=== PATIENT | female | born 1940 | race Caucasian/White ===

== ENCOUNTER → 2016-11-03 | Outpatient (CLI) | payer MEDICARE, BC ==
--- NOTE | 2016-11-03 23:41 | HKNOTE ---
DATE OF SERVICE: 11/03/2016 The patient comes for preoperative evaluation. She is scheduled to have a left total knee replaceme nt on 11/04/2016. She has been cleared for surgery by Dr. Jc Cuevas. She has not given any bl ood for transfusion. She understands the risks associated with using hospital blood. She is agreea ble to using hospital blood if needed. Numerous questions were asked and answered. She read my lowe klet on knee arthritis and knee replacement surgery. She comes in with her daughter. Dictated By: RAFA VERGARA/SCOTT Conf#: [id number] DID#: [id number]
== END | disposition home or self-care (01) ==
LOC: HKI 13:11
DX: Z01.818 Encounter for other preprocedural examination (principal)
CPT/HCPCS: G0463

== ENCOUNTER 2016-11-04 05:25 | Inpatient (IN) | payer MEDICARE, BC ==
[2016-11-04] VITALS (29 sets, daily range): BP systolic 109–165; BP diastolic 54–83; PULSE 76–106; RESP 13–27; Ht 149.9 cm; Wt 61.6 kg
[~2016-11-04] VITALS: Ht 149.9 cm; Wt 61.6 kg
[2016-11-04] MEDS ORDERED: LACTATED RINGER'S 1,000 ML IV* SCH (06:00)
[2016-11-04] MEDS ORDERED: TRANEXAMIC ACID 1,230 MG in SOD CHLORIDE 0.9% 100 ML IVPB ONE (06:00)
[2016-11-04] MEDS ORDERED: DEXAMETHASONE 4 MG/ML 1 ML INJ IV ONE (06:00)
[2016-11-04] MEDS ORDERED: CELECOXIB 200 MG CAP PO ONE (06:00)
[2016-11-04] MEDS ORDERED: LANSOPRAZOLE 30 MG CAP PO ONE (06:00)
[2016-11-04] MEDS ORDERED: VANCOMYCIN 1 GM (PMX) 250 ML IVPB ONE (06:00)
[2016-11-04] MEDS ORDERED: ONDANSETRON 4 MG INJ IV ONE (06:00)
[2016-11-04] MEDS ORDERED: oxyCODONE (CR) 10 MG TAB [oxyCONTIN] PO ONE (06:00)
[2016-11-04] MEDS ORDERED: ACETAMINOPHEN 1000MG/100ML IV 100 ML IVPB ONE (06:00)
[2016-11-04] MEDS ORDERED: SOD CHLORIDE 0.9% IRR SCH ×2 (06:30)
[2016-11-04] MEDS ORDERED: TRANEXAMIC ACID IRR SCH ×2 (06:30)
[2016-11-04] MEDS ORDERED: MIDAZOLAM 1 MG/ML 2 ML INJ ONE (06:50)
[2016-11-04] MEDS ORDERED: POLYMYXIN B 500000 UNIT INJ ONE (06:56)
[2016-11-04] MEDS ORDERED: BUPIVACAINE 0.25%/EPI (SDV) 30 ML INJ ONE (06:56)
[2016-11-04] MEDS ORDERED: METHYLENE BLUE 10 MG/ML VIAL ONE (06:56)
[2016-11-04] MEDS ORDERED: ROPIVACAINE 0.2% 100ML BAG ONE (06:56)
[2016-11-04] MEDS ORDERED: VANCOMYCIN 1 GM INJ ONE (06:57)
[2016-11-04] MEDS ORDERED: TOBRAMYCIN 1.2 GM POWDER ONE (06:57)
[2016-11-04] MEDS: KNEE PAIN COCKTAIL VANCO INJ SCH ×12 (07:00→08:02)
[2016-11-04] MEDS ORDERED: ROPIVACAINE 0.5 % 30 ML VIAL ONE (07:20)
[2016-11-04] MEDS ORDERED: PROPOFOL 100 ML ONE (07:20)
[2016-11-04] MEDS ORDERED: morphine SULFATE/PF (10 MG/10 ML) INJ ONE (07:24)
[2016-11-04] MEDS ORDERED: PHENYLephrine (100 MCG/ML) 5ML SYG ONE ×6 (07:28→09:34)
[2016-11-04] MEDS ORDERED: HYDROmorphONE 1 MG/ML SYG IV PRN ×2 (08:00)
[2016-11-04] MEDS ORDERED: morphine 2 MG INJ IV PRN (08:00)
[2016-11-04] MEDS ORDERED: LABETALOL HCL 20MG INJ IV PRN (08:00)
[2016-11-04] MEDS ORDERED: ONDANSETRON 4 MG INJ IV PRN (08:00)
[2016-11-04] MEDS ORDERED: ALBUMIN HUMAN 5% 250 ML IV PRN (08:00)
[2016-11-04] MEDS ORDERED: NALOXONE (0.4 MG/ML) INJ IV PRN ×2 (08:00→11:30)
[2016-11-04] MEDS ORDERED: morphine 4 MG/ML VIAL IV PRN (08:00)
[2016-11-04] MEDS ORDERED: MEPERIDINE 25 MG INJ IV PRN (08:00)
[2016-11-04] MEDS ORDERED: hydrALAzine 20 MG INJ IV PRN (08:00)
[2016-11-04] MEDS ORDERED: DIPHENHYDRAMINE 50 MG INJ IV PRN ×2 (08:00)
[2016-11-04] MEDS ORDERED: EPHEDrine SULFATE 50 MG/5 ML SYG IV PRN (08:00)
[2016-11-04] MEDS ORDERED: BACITRACIN 50000 UNITS INJ IRR ONE (08:02)
[2016-11-04] MEDS ORDERED: ALBUMIN HUMAN 5% 500 ML ONE (08:43)
--- NOTE | 2016-11-04 08:52 | RADRPT ---
PROCEDURE: Left knee x-ray. CLINICAL INDICATION: Intraoperative localization for knee replacement procedure. TECHNIQUE: 3 images obtained intraoperatively during a knee prosthesis placement procedure. COMPARISON: None available FINDINGS: 3 images obtained intraoperatively for localization during a knee prosthesis placement procedure. T he procedure was performed by Dr. Brooke; images were obtained for localization intraoperatively . Surgical hardware is seen in place. 10.3 seconds of fluoroscopy was used during the procedure IMPRESSION: 3 images and 10.3 seconds of fluoroscopy used during a left total knee replacement. RPTAT:HGDB .Cr Shabazz MD, MD Date Time Electronically viewed and signed by .Cr Shabazz MD, on 11/04/2016 08:52 .B/
[2016-11-04] MEDS ORDERED: ONDANSETRON 4 MG INJ ONE (08:56)
[2016-11-04] MEDS ORDERED: DEXAMETHASONE 4 MG/ML 1 ML INJ ONE (08:56)
[2016-11-04] MEDS ORDERED: FAMOTIDINE 20 MG INJ ONE (08:56)
[2016-11-04] MEDS ORDERED: PHENYLephrine 10 MG INJ ONE (09:55)
[2016-11-04] MEDS ORDERED: TRIAMCINOLONE ACET 40 MG/ML INJ ONE (10:21)
--- NOTE | 2016-11-04 10:42 | RADRPT ---
PROCEDURE: XR left knee. CLINICAL INDICATION: Knee pain. TECHNIQUE: AP and lateral views are available for review. COMPARISON: No comparison available FINDINGS: There is a postoperative total knee replacement. There is a possible fracture of the lateral tibial cortex adjacent to the distal tibial stem with the leakage of cement in the soft tissues. The osseou s structures are otherwise normal in mineralization, architecture and alignment.No osseous lesions a re identified. There are postoperative soft tissue changes . IMPRESSION: Postoperative left total knee replacement Possible fracture of the lateral tibial cortex adjacent to the distal tibial stent with leakage of c ement into the soft tissues. Postoperative soft tissue changes RPTAT: HGDB .Cr Shabazz MD, MD Date Time Electronically viewed and signed by .Cr Shabazz MD, on 11/04/2016 10:42 .B/
[2016-11-04] MEDS ORDERED: TRIAMCINOLONE ACET 40 MG/ML INJ INJ ONE (10:54)
[2016-11-04] MEDS ORDERED: DEXTROSE 5%-LR 1,000 ML IV SCH (11:13)
[2016-11-04] MEDS ORDERED: DIPHENHYDRAMINE 50 MG INJ IM PRN (11:30)
[2016-11-04] MEDS ORDERED: ASPIRIN (EC) 325 MG TAB PO ONE (11:30)
[2016-11-04] MEDS ORDERED: DOCUSATE SODIUM 100 MG CAP PO ONE (11:30)
[2016-11-04] MEDS ORDERED: BETHANECHOL 25 MG TAB PO PRN (11:30)
[2016-11-04] MEDS ORDERED: MEPERIDINE 10 MG/ML 30 ML PCA IV PRN (11:30)
[2016-11-04] MEDS ORDERED: COUMADIN NOTE XX SCH (11:30)
[2016-11-04] MEDS ORDERED: BISACODYL 10 MG SUPP PR PRN (11:30)
[2016-11-04] MEDS ORDERED: NA PHOSPHATE/BIPHOS 133 ML ENEMA PR PRN (11:30)
[2016-11-04] MEDS ORDERED: oxyCODONE 5 MG TAB PO PRN ×2 (11:30)
[2016-11-04] MEDS ORDERED: SENNA/DOCUSATE NA (8.6MG/50MG) TAB PO PRN (11:30)
[2016-11-04] MEDS ORDERED: HYDROmorphONE 0.2 MG/ML PCA IV PRN (11:30)
[2016-11-04] MEDS ORDERED: ZOLPIDEM 5 MG TAB PO PRN (11:30)
[2016-11-04] MEDS ORDERED: MAGNESIUM HYDROXIDE 30ML CUP PO PRN (11:30)
--- NOTE | 2016-11-04 11:30 | RADRPT ---
PROCEDURE: CR Left Knee CLINICAL INDICATION: Postop TKA TECHNIQUE: An AP and a lateral radiograph were submitted. COMPARISON: 11/04/2016 FINDINGS: Osseous Structures: The pole of the left knee replacement components are well seated. The osseous e lements otherwise appear rarefied but intact. Joint Spaces: Decreased intra-articular air is identified and surgical drains have been placed. Soft Tissues: Superficial piotr been placed ventrally. IMPRESSION: 1. Well seated total left knee replacement components, again noted. 2. Osteoporosis 3. Intra-articular air with drains in place. 4. Anterior superficial piotr are now evident. Physician Lemuel Date Time Electronically viewed and signed by Physician Lemuel on 11/04/2016 11:29 /
[2016-11-04] MEDS: CEFAZOLIN 1 GM/50 ML (PMX) 50 ML IVPB SCH ×2 (12:14→20:59)
[2016-11-04] MEDS: ONDANSETRON 4 MG INJ IV SCH ×3 (13:07→23:30)
--- NOTE | 2016-11-04 14:43 | OPR ---
DATE OF OPERATION: 11/04/2016 DATE OF OPERATION: 11/04/2016 SURGEON: Herbert. Edwardo MD STEWARD/STEWARDESS SECOND CLASS: ____ ANESTHESIOLOGIST: Dr. Mullins PREOPERATIVE DIAGNOSIS: Exceedingly severe degenerative osteoarthritis of the left knee. POSTOPERATIVE DIAGNOSIS: Exceedingly severe degenerative osteoarthritis of the left knee. OPERATION PERFORMED: Left total knee replacement (arthroplasty of the knee, condylar plateau medial and lateral compartments with patella resurfacing, CPT 37481). FINDINGS AT SURGERY: The patient was found to have exceedingly severe degenerative osteoarthritis a ffecting the entire knee. A photograph was taken of the distal femoral condyles and the intercondyl ar notch was completely overgrown with osteophytes. There was no normal cartilage anywhere in the k nee. There were huge osteophytes along the medial and lateral mortise of the distal femur. The bon e on the tibial side was markedly soft so that it was easy to insert a Kaushik into the soft bone. My professional opinion was that the bone was too soft for a standard tibial component and a component with a stem was therefore selected. Note also that an alignment ro d was used to determine the alignment of the tibial jig and this ney was set to align on the center of the tip of the knee to the center of the ankle, with the knee in the proper ____orientation. JUSTIFICATION FOR SURGERY: The knee was found to have end-stage osteoarthritis. The patient is a v clint active 76-year-old whose lifestyle is markedly affected by the arthritic knee. An extensive cou rse of conservative care has been tried prior to embarking on the knee replacement operation. There can be no reasonable expectation that any further conservative treatment will make any improvement to this patient's pain level and lifestyle. The risks and complications of the surgery were discuss ed with the patient at the preoperative visit as well as the risks and possible complications of blo od transfusion using hospital blood. The patient is agreeable to using hospital blood if needed. DESCRIPTION OF PROCEDURE: The patient was given intravenous antibiotics 1 hour prior to surgery. A n epidural anesthetic was initiated in the ICU holding area. The patient was taken to the operating room and given a light general anesthetic. The leg, foot, and ankle were prepared and draped in th e usual sterile fashion. The center of the ankle was marked at the midpoint between the 2 malleoli with a sterile marking pen. A tourniquet around the thigh was inflated to 225 mmHg after the leg sifuentes d been exsanguinated using an Esmarch bandage. The tourniquet was inflated at the initiation of pro cedure for a short period and was then again reinflated at the time of cementing the components part s. The total tourniquet time was 46 minutes. A longitudinal incision was made over the anterior aspect of the knee. The incision extended from t he tibial tubercle to a point just above the patella. The medial capsule was exposed by sharp and bailey ochoat dissection, and was incised 1/4 inch medial to the patella. A marking stitch was set on each s van of the incision at the midpoint of the capsule so as to enable accurate reapproximation at the e nd of the operation. A vastus split was made in the vastus medialis extending from the superior deuce e of the patella for approximately 5 cm between the line with the muscle fibers. The ends of the mu scle split at the patella were marked with a marking stitch on each side for later accurate reapprox imation. The patella was reflected laterally and osteophytes around the rim of the patella were rem brian. Osteophytes along the lateral femoral condyle were removed so as to facilitate lateral reflec tion of the patella. Posteromedial osteophytes were removed on the lateral side as well, so as to f ree up the lateral collateral ligament. Medial femoral osteophytes and posteromedial femoral osteop hytes were also removed at this time. This allowed for the knee to be brought into a more normal al ignment. A segment of bone was cut from the articular surface of the patella using a caliper to det ermine the exact thickness to be removed. The remaining thickness of the patella was 17 mm. The kn ee was flexed, and the patella was displaced laterally without eversion. Osteophytes in the femoral notch were removed. The remnants of the medial and lateral menisci were excised and the cruciate l igaments were excised. The medial collateral ligament was elevated as an osteo-periosteal flap from the proximal tibia. The distal end of the medial collateral ligament remained attached to the tibi a throughout the operation. The tibia was retracted forward with Hohmann retractor, inserted knife finisher ior to the midpoint of the proximal tibia. An AP and lateral x-ray was obtained with the alignment ney in place. The knee was first oriented into the proper rotation by obtaining a lateral x-ray of the knee and changing the rotation alignment until the 2 femoral condyles were perfectly overlapped. An alignment ney was now set over the anterior aspect of the knee and the proximal end was set at the center of the knee. The distal end was set at the center of the ankle. Using this alignment, ma rks were made to orient the tibial jig. The tibial jig was now set in place using these above-menti oned alignment parameters. It was noted at this point that alignment from the center of the knee to the center of the ankle did not pass centrally down the tibia because there was a certain degree of bowing of the tibia. However, the mechanical alignment of the knee had to be restored. This showe d that the alignment was satisfactory after some slight adjustments were made. The posterior slope of the tibia was set at 2 degrees (necessary for a stemmed implant). The tibial cutting block was a ttached to the proximal tibia with 2 Steinmann pins. An external alignment ney was placed on the cu tting block to confirm the alignment of the cutting block. An Sj Wing feeler gauge was now place d on the superior aspect of the cutting block to further confirm the posterior slope of the tibia an d the depth of the cut to be made. An oscillating saw was used to remove an appropriate amount of b one from the proximal tibia with the healthy side being used to measure the cutting depth. The late ral femoral condyle of the distal femur was measured to determine the appropriate size for the femor al component. The anterior condyle of the femur was partially removed with a rongeur. A medium-siz ed cutting block was attached to the distal femur with 2 Steinmann pins through the pin holes in the block. The external alignment jig of this cutting block was lined up with the anterior surface of the femur and a central intercondylar hole for the intramedullary ney was drilled through the hole i n the alignment block. The block was removed. A long Waterpik nozzle was used to flush fat from th e intramedullary canal. The appropriately sized cutting block was now attached to the femur by mean s of an intramedullary ney. The linking guide was inserted into the slot in the base of the femoral cutting block with the knee set at 90 degrees of flexion and with the linking guide set flush with the proximal tibial cut in order to set the appropriate rotational alignment on the femoral cutting block. Ligament balance was checked at this point and was found to be very satisfactory. Once the rotational alignment had been determined, and the ligaments found to be balanced, the femoral cuttin g block was secured to the distal femur with 2 Steinmann pins. The anterior and posterior cuts of t he distal femur were made off the femoral cutting block. The cutting block was removed and a spacer block was used to measure the flexion gap which was found to be 15 mm. The same spacer block size without the femoral element was used with the leg in extension to determi ne the amount of distal femur to be removed in the transverse plane. A 5-degree distal cutting bloc k was now set on the femoral intramedullary ney, and the ney was inserted into the intramedullary ca nal. The appropriate amount of bone to be removed was determined. The femoral cutting block was pi nned to the anterior surface of the femur with 2 Steinmann pins. The appropriate amount of bone was resected off the distal femur to give an extension gap equal to the thickness of the flexion gap. The cut needed to be repeated after initial cut in order to produce an extension gap the same size a s the flexion gap. By using the appropriate cutting blocks, the rest of the femoral cuts were made. The femoral trial component was installed and was found to fit perfectly. The femoral trial component was removed. Lupe garcia proximal tibia was sized, and the appropriate tibial tray selected. The central fixation hole in the tibia was made using the tibial tray template and the appropriate instruments. The femoral and tibial trials and the trial tibial insert were installed, and the patella was prepared to accept th e 32 mm patellar dome component. The trial components were all removed. The tourniquet was inflate d. Soft tissues around the knee, especially the posterior capsule, were injected with a mixture of Naropin, Toradol, morphine, and clonidine. The cut surfaces of the bones were cleaned with pulsatil e Water Jet lavage and thoroughly dried. Sclerotic bone surfaces were drilled with a 1/8-inch drill . The tibial trial component was installed with methyl methacrylate cement followed by the femoral component and finally the patellar component. Cement was used on all 3 components. The cement was finger packed into the cut surfaces of the bone and pressurized with a rubber dam in order to get go od interdigitation of the cement into the bone. A lateral x-ray of the knee was obtained while the cement was hardening with the anticipated appropriate spacer trial in place. Once the cement was sifuentes rd, all extraneous cement was removed. The cut edges of the medial capsule were held together at th e midpoint with a towel clip, and the knee was put through a full range of motion. The patella was found to track satisfactorily. A lateral release was not required. At this point, the patella was found to track very well in the patellar groove of the femoral component. The knee was frequently irrigated with normal saline containing antibiotics with pulsatile lavage th roughout the entire operation as a prophylactic measure against infection. Once the cement was hard , the tourniquet was released. While the cement was hardening, a true lateral x-ray of the knee was now obtained with the 17.[address]. A true AP x-ray of the knee was obtained at the katie e time. This showed that the tibial intramedullary component was not central in the proximal tibia because of the above-mentioned bowing of the tibia. It also showed that cement had extruded from a p erforation in the tibial bone. Thought was given to removing this cement, but it would have require d an additional incision, which I felt was not justified. Bleeding points were cauterized. The to nicko tourniquet time was 46 minutes. The patient's vital signs remained stable throughout the operat ion. The permanent rotating bearing was installed. Superficial and deep Hemovac drains were set in place . The wound was closed using interrupted Vicryl on the capsule with FiberWire used at strategic poi nts such as the attachment of the distal ends of the vastus medialis at the split, and the tibial te ndon was also attached to the osteo-periosteal flap with FiberWire. The rest of the medial capsule was closed with interrupted Vicryl. A subcuticular stitch was inserted and piotr were used on the skin. The usual sterile dressings were applied. A Juan-Barnard compression dressing was applied a fter a sterile cooling pad had been set in place against the deep tissues by sterile cast padding. The patient's condition at the end of the procedure was satisfactory. Vital signs remained stable t hroughout the operation. The patient returned to the recovery room in stable condition. X-rays wer e obtained in the recovery room. Calf pumps were applied to both legs in the operating room. There were no problems or complications as far as we know. The sponge and instrument counts were correct . The cement appeared to be in a place where it could not cause any harm. COMPONENT INFORMATION: KNEE IMPLANT TYPE: LCS. FEMORAL COMPONENT SIZE: Medium TIBIAL COMPONENT SIZE: #3, TIBIAL EXTENSION LENGTH 30 MM (THE SHORTEST THAT IS AVAILABLE FOR THIS S YSTEM) PATELLAR COMPONENT SIZE: 32 MM DONE TIBIAL INSERT: 17.5 MM, POSTERIOR STABILIZING ROTATING BEARING. IMPLANT MANAGER LONG TERM CARE: The [employer] [facility] [place], [place]. TOTAL TOURNIQUET TIME: 46 MINUTES TOTAL BLOOD LOSS: Possibly 150 mL. Dictated By: RAFA VERGARA/SCOTT Conf#: [id number] DID#: [id number]
[2016-11-04] MEDS ORDERED: BACITRACIN 50000 UNITS INJ ONE (14:57)
[2016-11-04] MEDS ORDERED: GLUCAGON 1 MG INJ IM PRN (19:30)
[2016-11-04] MEDS ORDERED: GLUCOSE GEL 15 GRAM TUBE BUCCAL PRN (19:30)
[2016-11-04] MEDS ORDERED: DEXTROSE 50% 50 ML SYRINGE IV PRN ×2 (19:30)
[2016-11-04] MEDS ORDERED: GLUCOSE GEL 15 GRAM TUBE PO PRN ×2 (19:30)
--- NOTE | 2016-11-04 19:42 | CONS ---
DATE OF ADMISSION: 11/04/2016 DATE OF CONSULTATION: 11/04/2016 TYPE OF CONSULTATION: Medical. Thank you, Dr. Brandon, for asking me to participate in the medical management of this patient. REASON FOR CONSULTATION: To manage the patient's hypertension, hyperlipidemia, prediabetes. HISTORY OF PRESENT ILLNESS: This 76-year-old female is in the recovery room after undergoing a left total knee replacement. The patient has a history of osteoarthritis of both knees. She has failed medical therapy and decided to undergo a total knee replacement. The patient is awake and alert. She was able to go over her history with me. The patient is comfortable as far as knee pain. She i s having some nausea and did have some vomiting. PAST MEDICAL HISTORY As follows: 1. Prediabetes. 2. Hypertension. 3. Hyperlipidemia. 4. 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 5. History of hyperkalemia. 6. Vitamin D deficiency. 7. Coronary artery disease. 8. Rosacea. 9. Osteopenia. 10. Degenerative disk disease with spinal stenosis. 11. Osteoarthritis. 12. History of shingles. The patient also has: 13. Renal cysts. 14. Liver cysts. PAST SURGICAL HISTORY: Tonsillectomy, adenoidectomy, peptic ulcer disease - previously on omeprazol e, laparoscopic cholecystectomy in 2009. ALLERGIES: NO KNOWN DRUG ALLERGIES. SOCIAL HISTORY: She is twice; currently, with a boyfriend. She has an adopted daughter. Retired [employer]. She has never smoked. FAMILY HISTORY: Remarkable for mother had heart disease, is ; she also diabetes mellitus, m acular degeneration. Father , coronary artery disease, diabetes mellitus, CVA. CURRENT MEDICATIONS Include the followin. Metformin 500 mg twice a day. 2. Pravastatin 20 mg a day. 3. Zestoretic 20/12.5 once a day. She did take a dose this morning. She has been off: 1. Aspirin. 2. Omeprazole. 3. Calcium. 4. [place] 3 fish oil. PHYSICAL EXAMINATION GENERAL: At this time, reveals a well-developed female in no apparent distress. VITAL SIGNS: Pulse of 84, respirations 22, blood pressure 115/63, O2 saturation 92% on a 2 L nasal cannula. HEENT: Head normocephalic. Eyes, extraocular muscles intact. The patient's vision is poor. NOSE AND MOUTH: Normal. NECK: Supple. No neck vein distention. LUNGS: Clear to auscultation. HEART: Regular rhythm. No murmurs, gallops or rubs. ABDOMEN: Soft, nontender. EXTREMITIES: No peripheral edema. NEUROLOGIC: Grossly intact. IMPRESSION: This patient is stable postoperative a left total knee replacement. Her blood pressure is well-controlled at this time. I will manage the patient's hypertension, prediabetes and hyperch olesterolemia. PLAN: 1. Resume some routine medications. 2. Accu-Cheks with sliding scale insulin. 3. Adjust IVs because of history of prediabetes. 4. Check labs in the morning. 5. I will follow the patient along with you medically. Dictated By: CHONG PEREA MD, ND/SCOTT Conf#: [id number] DID#: [id number] CC: RAFA BRANDON MD;*End*
[2016-11-04] MEDS: SOD CHLORIDE 0.45% 1,000 ML IV SCH (20:58)
[2016-11-04] MEDS: ATORVASTATIN 20 MG TAB PO SCH (20:59)
[2016-11-04] MEDS: CELECOXIB 200 MG CAP PO SCH (20:59)
[2016-11-04] MEDS: INSULIN ASPART [NOVOLOG] 3 ML PEN SC SCH (21:00)
[2016-11-05] MEDS: ACCUCHECK XX SCH (02:00)
[2016-11-05] MEDS: CEFAZOLIN 1 GM/50 ML (PMX) 50 ML IVPB SCH (03:53)
[2016-11-05 04:51] VITALS: BP 119/86; RESP 18
[2016-11-05 05:42] LABS: ALBUMIN 3.2 g/dl (3.3-4.9)
[2016-11-05 05:45] LABS: ALBUMIN/GLOBULIN RATIO 1.45; BILIRUBIN,INDIRECT 0.4 mg/dl (0-1.1); BILIRUBIN,TOTAL 0.4 mg/dl (0.2-1.3); CREATININE 0.6 mg/dl (0.44-1.00); TOTAL PROTEIN 5.4 g/dl (6.1-8.1)
[2016-11-05 05:46] LABS: CALCIUM 8.3 mg/dl (8.4-10.2); HEMATOCRIT 25.9 % (37.0-47.0); HEMOGLOBIN 8.4 g/dl (12.0-16.0); LYMPHOCYTES % 7.9 % (15.0-51.0); MEAN CORPUSCULAR HEMOGLOBIN 25.7 pg (29.0-33.0); MEAN CORPUSCULAR HGB CONC 32.4 g/dl (32.0-37.0); MEAN CORPUSCULAR VOLUME 79.2 fl (82.0-101.0); MEAN PLATELET VOLUME 9.2 fl (7.4-10.4); MONOCYTE # 0.7 10^3/ul (0.3-0.9); MONOCYTES % 5.8 % (0.0-11.0); NEUTROPHIL # 10.7 10^3/ul (1.6-7.5); NEUTROPHILS % 86.3 % (39.0-77.0); PLATELET COUNT 188 10^3/UL (140-440); RED BLOOD COUNT 3.27 10^6/ul (4.20-5.40); RED CELL DISTRIBUTION WIDTH 15.4 % (11.5-14.5); UNCORRECTED WBC 12.4 10^3/ul (4.8-10.8); WHITE BLOOD COUNT 12.4 10^3/ul (4.8-10.8)
[2016-11-05 05:49] LABS: CONDITION 1; LH ANALYZER COMMENTS 1
[2016-11-05] MEDS ORDERED: KETOROLAC 30 MG INJ INJ PRN (06:00)
[2016-11-05] MEDS ORDERED: BUPIVACAINE 0.25%/EPI (SDV) 30 ML INJ INJ PRN (06:00)
[2016-11-05] MEDS: DEXAMETHASONE 4 MG/ML 1 ML INJ IV SCH (06:06)
[2016-11-05] MEDS: ONDANSETRON 4 MG INJ IV SCH (06:06)
[2016-11-05 06:12] VITALS: BP 114/55; PULSE 75; RESP 20
[2016-11-05 07:11] VITALS: BP 117/60; RESP 19
[2016-11-05] MEDS: INSULIN ASPART [NOVOLOG] 3 ML PEN SC SCH ×4 (07:50→21:00)
[2016-11-05 08:10] LABS: ADD UMIC YES; URINE BILIRUBIN (Dip) NEGATIVE (NEGATIVE); URINE BLOOD (Dip) 1+ (NEGATIVE); URINE COLOR LT. YELLOW (YELLOW); URINE GLUCOSE (Dip) NEGATIVE (NEGATIVE); URINE KETONES (Dip) NEGATIVE (NEGATIVE); URINE LEUKOCYTE ESTERASE (Dip) NEGATIVE (NEGATIVE); URINE NITRITE (Dip) NEGATIVE (NEGATIVE); URINE TOTAL PROTEIN (Dip) NEGATIVE (NEGATIVE); URINE UROBILINOGEN (Dip) 0.2 E.U./dL (0.1-1.0)
[2016-11-05 08:28] LABS: BACTERIA,URINE FEW
[2016-11-05] MEDS: CELECOXIB 200 MG CAP PO SCH ×4 (09:00→21:11)
[2016-11-05] MEDS: ASPIRIN (EC) 325 MG TAB PO SCH ×2 (09:46→21:12)
[2016-11-05] MEDS: FERROUS FUMARATE (SR) TAB PO SCH ×2 (09:46→21:12)
[2016-11-05] MEDS: DOCUSATE SODIUM 100 MG CAP PO SCH ×2 (09:46→21:12)
[2016-11-05] MEDS: SOD CHLORIDE 0.45% 1,000 ML IV SCH ×2 (09:47→20:00)
--- NOTE | 2016-11-05 10:28 | CONS ---
Date/Time of Note Date/Time of Note DATE: 11/05/16 TIME: 10:23 Assessment/Plan Assessment/Plan Chief Complaint/Hosp Course 1. she is 1 day post op a L TKR . she is asymptomatic . 2. Anemia , recheck H/H in am 3. elevated liver enzymes , will repeat in am 4. BP is under good control Problems: Consultation Date/Type/Reason Admit Date/Time Nov 04, 2016 at 05:25 Initial Consult Date 24 HR Interval Summary Free Text/Dictation she is now post op L TKR . she is feeling better today . Constitutional: improved Exam/Review of Systems Vital Signs Vitals Vital Signs Date Time Temp Pulse Resp B/P Pulse Ox O2 Delivery O2 Flow Rate FiO2 11/05/16 07:11 98.3 72 19 117/60 98 11/05/16 06:12 Nasal Cannula 2.0 Intake and Output 11/04/16 11/04/16 11/05/16 15:00 23:00 07:00 Intake Total 2612.3 ml 50 ml 1110 ml Output Total 750 ml 780 ml Balance 1862.3 ml 50 ml 330 ml Exam Constitutional: alert, oriented, well developed Psych: nl mood/affect, no complaints Respiratory: clear to auscultation, normal air movement Cardiovascular: nl pulses, regular rate and rhythm Gastrointestinal: nl liver, spleen, non-tender, soft Musculoskeletal: nl extremities to inspection Results Result Diagram: 11/05/16 0439 11/05/16 0439 Results 24 hrs Laboratory Tests Test 11/04/16 19:06 11/04/16 21:00 11/05/16 04:39 11/05/16 05:00 Bedside Glucose 191 149 Alanine Aminotransferase (ALT/SGPT) 104 H Albumin 3.2 L Albumin/Globulin Ratio 1.45 Alkaline Phosphatase 42 Anion Gap 10 Aspartate Amino Transf (AST/SGOT) 84 H Basophils # 0.0 Basophils % 0.0 Blood Morphology Comment Blood Urea Nitrogen 13 Calcium Level 8.3 L Carbon Dioxide Level 31 Chloride Level 102 Creatinine 0.60 Direct Bilirubin 0.00 Eosinophils # 0.0 Eosinophils % 0.0 Globulin 2.20 Glucose Level 126 Hematocrit 25.9 L Hemoglobin 8.4 L Indirect Bilirubin 0.4 Lymphocytes # 1.0 Lymphocytes % 7.9 L Mean Corpuscular Hemoglobin 25.7 L Mean Corpuscular Hemoglobin Concent 32.4 Mean Corpuscular Volume 79.2 L Mean Platelet Volume 9.2 Monocytes # 0.7 Monocytes % 5.8 Neutrophils # 10.7 H Neutrophils % 86.3 H Nucleated Red Blood Cells # 0.0 Nucleated Red Blood Cells % 0.0 Platelet Count 188 Potassium Level 4.0 Red Blood Count 3.27 L Red Cell Distribution Width 15.4 H Sodium Level 139 Total Bilirubin 0.4 Total Protein 5.4 L White Blood Count 12.4 H Urine Bacteria FEW Urine Bilirubin NEGATIVE Urine Clarity CLEAR Urine Color LT. YELLOW Urine Epithelial Cells FEW Urine Glucose NEGATIVE Urine Hemoglobin 1+ H Urine Ketones NEGATIVE Urine Leukocyte Esterase NEGATIVE Urine Microscopic RBC 5-10 Urine Microscopic WBC 0-2 Urine Nitrite NEGATIVE Urine Specific [place] >=1.030 H Urine Total Protein NEGATIVE Urine Urobilinogen 0.2 E.U./dL Urine pH 6.0 Test 11/05/16 08:13 Bedside Glucose 130 Medications Medications Current Medications Hydromorphone HCl (Dilaudid TURNER MACHINE OPERATOR) Q4PCA PRN IV SEVERE PAIN 8-10; Start 11/04/16 at 11:30; Stop 11/05/16 at 11:29 Meperidine HCl (Demerol TURNER MACHINE OPERATOR) Q4PCA PRN IV SEVERE PAIN 8-10; Start 11/04/16 at 11:30; Stop 11/05/16 at 11:29 Oxycodone HCl (Roxicodone) 20 mg Q3H PRN PO PAIN LEVEL 8-10; Start 11/04/16 at 11:30 Oxycodone HCl (Roxicodone) 10 mg Q3H PRN PO PAIN LEVEL 4-7; Start 11/04/16 at 11 :30 Zolpidem Tartrate (Ambien) 5 mg HS PRN PO INSOMNIA; Start 11/04/16 at 11:30 Miscellaneous Information (Note) NOTE XX ; Start 11/04/16 at 11:30 Aspirin (Ecotrin) 325 mg BID PO Last administered on 11/05/16 09:46; Admin Dose 325 MG; Start 11/05/16 at 09:00 Celecoxib (Celebrex) 200 mg BID PO Last administered on 11/05/16 09:46; Admin Dose 200 MG; Start 11/05/16 at 09:00 Dexamethasone (Decadron) 4 mg DAILY@07 IV Last administered on 11/05/16 06:06; Admin Dose 4 MG; Start 11/05/16 at 07:00; Stop 11/07/16 at 06:59 Pantoprazole (Protonix Tab) 40 mg DAILY@06 PO ; Start 11/06/16 at 06:00 Docusate Sodium/ Ferrous Fumarate (Marilin-Sequels) 1 tab BID PO Last administered on 11/05/16 09:46; Admin Dose 1 TAB; Start 11/05/16 at 09:00 Docusate Sodium (Colace) 200 mg BID PO Last administered on 11/05/16 09:46; Admin Dose 200 MG; Start 11/05/16 at 09:00; Stop 11/08/16 at 08:59 Simethicone (Mylicon) 80 mg TID PRN PO DISTENSION/GAS/BLOATING; Start 11/04/16 at 11:30 Senna/Docusate Sodium (Senokot-S) 2 tab BID PRN PO CONSTIPATION; Start 11/04/16 at 11:30 Magnesium Hydroxide (Milk Of Mag) 30 ml HS PRN PO CONSTIPATION; Start 11/04/16 at 11:30 Bisacodyl (Dulcolax Supp) 10 mg DAILY PRN [place] CONSTIPATION; Start 11/04/16 at 11: 30 Sodium Biphosphate/ Sodium Phosphate (Fleet Enema) 133 ml DAILY PRN [place] CONSTIPATION; Start 11/04/16 at 11:30 Diphenhydramine HCl (Benadryl) 25 mg Q4H PRN IM ITCHING OR RASH; Start 11/04/16 at 11:30 Ketorolac Tromethamine (Toradol) 30 mg DAILY@06 PRN INJ ADMINSTER BY SURGEON ONLY; Start 11/05/16 at 06:00; Stop 11/09/16 at 05:59 Bupivacaine HCl/ Epinephrine Bitart (Marcaine 0.25%/ Epi (Sdv) 30 ml) 20 ml DAILY@06 PRN INJ ADMINSTER BY SURGEON ONLY; Start 11/05/16 at 06:00; Stop at 05:59 Naloxone HCl (Narcan) 0.2 mg Q2M PRN IV DECREASED REPIRATORY RATE; Start at 11:30 Celecoxib 200 mg 200 mg BID PO Last administered on 11/04/16 20:59; Admin Dose 200 MG; Start 11/04/16 at 21:00 Sodium Chloride (1/2 NS) 1,000 ml @ 80 mls/hr [id number] IV Last administered on 11/05/16 09:47; Admin Dose 80 MLS/HR; Start 11/04/16 at 19:00 Atorvastatin Calcium (Lipitor) 20 mg HS PO Last administered on 11/04/16 20:59 ; Admin Dose 20 MG; Start 11/04/16 at 21:00 Diagnostic Test (Pha) (Accucheck) 1 ea 02 XX ; Start 11/05/16 at 02:00 Miscellaneous Information 1 ea NOTE XX ; Start 11/04/16 at 19:30 Glucose (Glutose) 15 gm Q15M PRN PO DECREASED GLUCOSE; Start 11/04/16 at 19:30 Glucose (Glutose) 22.5 gm Q15M PRN PO DECREASED GLUCOSE; Start 11/04/16 at 19:30 Dextrose (D50w Syringe) 25 ml Q15M PRN IV DECREASED GLUCOSE; Start 11/04/16 at 19:30 Dextrose (D50w Syringe) 50 ml Q15M PRN IV DECREASED GLUCOSE; Start 11/04/16 at 19:30 Glucagon (Glucagen) 1 mg Q15M PRN IM DECREASED GLUCOSE; Start 11/04/16 at 19:30 Glucose (Glutose) 15 gm Q15M PRN BUCCAL DECREASED GLUCOSE; Start 11/04/16 at 19: 30 CHONG PEREA MD Nov 05, 2016 10:27
[2016-11-05] MEDS: metFORMIN 500 MG TAB PO SCH (13:08)
[2016-11-05 19:25] VITALS: BP 123/59; RESP 18
[2016-11-05] MEDS: ATORVASTATIN 20 MG TAB PO SCH (21:12)
[2016-11-06] MEDS: ACCUCHECK XX SCH (02:00)
[2016-11-06 06:01] LABS: POTASSIUM 3.7 mmol/L (3.5-5.1)
[2016-11-06 06:10] LABS: BASOPHILS % 0.3 % (0.0-2.0); EOSINOPHILS % 0.5 % (0.0-7.0); HEMATOCRIT 22.8 % (37.0-47.0); HEMOGLOBIN 7.7 g/dl (12.0-16.0); LYMPHOCYTES # 1.7 10^3/ul (0.8-2.9); LYMPHOCYTES % 18.2 % (15.0-51.0); MEAN CORPUSCULAR HEMOGLOBIN 26.3 pg (29.0-33.0); MEAN CORPUSCULAR HGB CONC 33.5 g/dl (32.0-37.0); MEAN CORPUSCULAR VOLUME 78.5 fl (82.0-101.0); MEAN PLATELET VOLUME 9.7 fl (7.4-10.4); MONOCYTE # 0.8 10^3/ul (0.3-0.9); NEUTROPHIL # 6.8 10^3/ul (1.6-7.5); PLATELET COUNT 166 10^3/UL (140-440); RED BLOOD COUNT 2.91 10^6/ul (4.20-5.40); UNCORRECTED WBC 9.4 10^3/ul (4.8-10.8); WHITE BLOOD COUNT 9.4 10^3/ul (4.8-10.8)
[2016-11-06 06:29] LABS: CONDITION 1; LH ANALYZER COMMENTS 1
[2016-11-06] MEDS: PANTOPRAZOLE (EC) 40 MG TAB PO SCH (06:32)
[2016-11-06] MEDS: DEXAMETHASONE 4 MG/ML 1 ML INJ IV SCH (06:32)
[2016-11-06 06:34] LABS: ALBUMIN 2.9 g/dl (3.3-4.9)
[2016-11-06 06:37] LABS: ALBUMIN/GLOBULIN RATIO 1.45; BILIRUBIN,INDIRECT 0.5 mg/dl (0-1.1); BILIRUBIN,TOTAL 0.5 mg/dl (0.2-1.3); CREATININE 0.69 mg/dl (0.44-1.00); TOTAL PROTEIN 4.9 g/dl (6.1-8.1)
[2016-11-06 06:38] LABS: CALCIUM 8.7 mg/dl (8.4-10.2)
[2016-11-06 07:36] VITALS: BP 145/67; RESP 20
[2016-11-06] MEDS: INSULIN ASPART [NOVOLOG] 3 ML PEN SC SCH ×4 (07:50→21:00)
[2016-11-06] MEDS: SOD CHLORIDE 0.45% 1,000 ML IV SCH ×2 (08:30→21:00)
[2016-11-06] MEDS: CELECOXIB 200 MG CAP PO SCH ×3 (09:00→21:09)
[2016-11-06] MEDS: DOCUSATE SODIUM 100 MG CAP PO SCH ×2 (09:00→21:09)
[2016-11-06] MEDS: metFORMIN 500 MG TAB PO SCH (09:02)
[2016-11-06] MEDS: ASPIRIN (EC) 325 MG TAB PO SCH ×2 (09:03→21:08)
[2016-11-06] MEDS: FERROUS FUMARATE (SR) TAB PO SCH ×2 (09:03→21:09)
--- NOTE | 2016-11-06 11:21 | PN ---
Date/Time of Note Date/Time of Note DATE: 11/06/16 TIME: 11:19 Assessment/Plan Lines/Catheters IV Catheter Type (from Nrsg): Saline Lock Mejia in Place (from Nrsg): Yes Assessment/Plan Assessment/Plan POD # 2. Stable but low h/h secondary to acute blood loss. -May need transfusion given h/h < 8 and patient is symptomatic. Will defer to clinical marketing manager to make final decision as to whether to transfuse -OOB with PT -ASA and SCDs -Pain meds Subjective 24 Hr Interval Summary Doing well. Some pain. A little light headed. Exam/Review of Systems Vital Signs Vitals Vital Signs Date Time Temp Pulse Resp B/P Pulse Ox O2 Delivery O2 Flow Rate FiO2 11/06/16 07:36 98.0 97 20 145/67 100 11/05/16 06:12 Nasal Cannula 2.0 Intake and Output 11/05/16 11/05/16 11/06/16 14:59 22:59 06:59 Intake Total 760 ml 600 ml Balance 760 ml 600 ml Exam Free Text/Dictation Dressing dry Incision clean, dry, and intact without redness or drainage 5/5 Tibialis Anterior, EHL, Gastroc Soleus, Peroneals Normal sensation Palpable DP/PT, CR < 2 Sec No distal edema Results Result Diagram: 11/06/16 0435 11/06/16 0435 DEWAYNE BUSTOS MD Nov 06, 2016 11:20
--- NOTE | 2016-11-06 13:41 | CONS ---
Date/Time of Note Date/Time of Note DATE: 11/06/16 TIME: 13:38 Consultation Date/Type/Reason Admit Date/Time Nov 04, 2016 at 05:25 Initial Consult Date 11/04/16 Type of Consultation: Anesthesia Reason for Consultation Left TKA 24 HR Interval Summary Free Text/Dictation Patient is a 76 year old female went under Epidural and general anesthesia for Left total knee replacement procedure. Surgery was uneventful, Epidural Duramorph was given for post op pain control. Epidural catheter was removed at the end of the case tip was intact. Patient is doing well. no sensory or motor deficit. no apnea noted. Pain is well controlled, vital signs are stable patient is afebrile, no itching or nausea or vomiting noted. Primary team will follow up. Exam/Review of Systems Vital Signs Vitals Vital Signs Date Time Temp Pulse Resp B/P Pulse Ox O2 Delivery O2 Flow Rate FiO2 11/06/16 07:36 98.0 97 20 145/67 100 11/05/16 06:12 Nasal Cannula 2.0 Intake and Output 11/05/16 11/05/16 11/06/16 15:00 23:00 07:00 Intake Total 760 ml 600 ml Balance 760 ml 600 ml Results Result Diagram: 11/06/16 0435 11/06/16 0435 Results 24 hrs Laboratory Tests Test 11/05/16 17:00 11/05/16 21:16 11/06/16 04:35 11/06/16 08:16 Bedside Glucose 120 107 113 Alanine Aminotransferase (ALT/SGPT) 69 Albumin 2.9 L Albumin/Globulin Ratio 1.45 Alkaline Phosphatase 38 L Anion Gap 12 Aspartate Amino Transf (AST/SGOT) 64 H Basophils # 0.0 Basophils % 0.3 Blood Morphology Comment Blood Urea Nitrogen 18 Calcium Level 8.7 Carbon Dioxide Level 29 Chloride Level 103 Creatinine 0.69 Direct Bilirubin 0.00 Eosinophils # 0.0 Eosinophils % 0.5 Globulin 2.00 Glucose Level 106 Hematocrit 22.8 L Hemoglobin 7.7 L Indirect Bilirubin 0.5 Lymphocytes # 1.7 Lymphocytes % 18.2 Mean Corpuscular Hemoglobin 26.3 L Mean Corpuscular Hemoglobin Concent 33.5 Mean Corpuscular Volume 78.5 L Mean Platelet Volume 9.7 Monocytes # 0.8 Monocytes % 9.0 Neutrophils # 6.8 Neutrophils % 72.0 Nucleated Red Blood Cells # 0.0 Nucleated Red Blood Cells % 0.0 Platelet Count 166 Potassium Level 3.7 Red Blood Count 2.91 L Red Cell Distribution Width 15.0 H Sodium Level 140 Total Bilirubin 0.5 Total Protein 4.9 L White Blood Count 9.4 # Medications Medications Current Medications Oxycodone HCl (Roxicodone) 20 mg Q3H PRN PO PAIN LEVEL 8-10; Start 11/04/16 at 11:30 Oxycodone HCl (Roxicodone) 10 mg Q3H PRN PO PAIN LEVEL 4-7; Start 11/04/16 at 11 :30 Zolpidem Tartrate (Ambien) 5 mg HS PRN PO INSOMNIA; Start 11/04/16 at 11:30 Miscellaneous Information (Note) NOTE XX ; Start 11/04/16 at 11:30 Aspirin (Ecotrin) 325 mg BID PO Last administered on 11/06/16 09:03; Admin Dose 325 MG; Start 11/05/16 at 09:00 Celecoxib (Celebrex) 200 mg BID PO Last administered on 11/06/16 09:03; Admin Dose 200 MG; Start 11/05/16 at 09:00 Dexamethasone (Decadron) 4 mg DAILY@07 IV Last administered on 11/06/16 06:32; Admin Dose 4 MG; Start 11/05/16 at 07:00; Stop 11/07/16 at 06:59 Pantoprazole (Protonix Tab) 40 mg DAILY@06 PO Last administered on 11/06/16 06: 32; Admin Dose 40 MG; Start 11/06/16 at 06:00 Docusate Sodium/ Ferrous Fumarate (Marilin-Sequels) 1 tab BID PO Last administered on 11/06/16 09:03; Admin Dose 1 TAB; Start 11/05/16 at 09:00 Docusate Sodium (Colace) 200 mg BID PO Last administered on 11/05/16 21:12; Admin Dose 200 MG; Start 11/05/16 at 09:00; Stop 11/08/16 at 08:59 Simethicone (Mylicon) 80 mg TID PRN PO DISTENSION/GAS/BLOATING; Start 11/04/16 at 11:30 Senna/Docusate Sodium (Senokot-S) 2 tab BID PRN PO CONSTIPATION; Start 11/04/16 at 11:30 Magnesium Hydroxide (Milk Of Mag) 30 ml HS PRN PO CONSTIPATION; Start 11/04/16 at 11:30 Bisacodyl (Dulcolax Supp) 10 mg DAILY PRN [place] CONSTIPATION; Start 11/04/16 at 11: 30 Sodium Biphosphate/ Sodium Phosphate (Fleet Enema) 133 ml DAILY PRN [place] CONSTIPATION; Start 11/04/16 at 11:30 Diphenhydramine HCl (Benadryl) 25 mg Q4H PRN IM ITCHING OR RASH; Start 11/04/16 at 11:30 Ketorolac Tromethamine (Toradol) 30 mg DAILY@06 PRN INJ ADMINSTER BY SURGEON ONLY; Start 11/05/16 at 06:00; Stop 11/09/16 at 05:59 Bupivacaine HCl/ Epinephrine Bitart (Marcaine 0.25%/ Epi (Sdv) 30 ml) 20 ml DAILY@06 PRN INJ ADMINSTER BY SURGEON ONLY; Start 11/05/16 at 06:00; Stop at 05:59 Naloxone HCl (Narcan) 0.2 mg Q2M PRN IV DECREASED REPIRATORY RATE; Start at 11:30 Celecoxib 200 mg 200 mg BID PO Last administered on 11/04/16 20:59; Admin Dose 200 MG; Start 11/04/16 at 21:00 Sodium Chloride (1/2 NS) 1,000 ml @ 80 mls/hr [id number] IV Last administered on 11/05/16 09:47; Admin Dose 80 MLS/HR; Start 11/04/16 at 19:00 Atorvastatin Calcium (Lipitor) 20 mg HS PO Last administered on 11/05/16 21:12 ; Admin Dose 20 MG; Start 11/04/16 at 21:00 Diagnostic Test (Pha) (Accucheck) 1 ea 02 XX ; Start 11/05/16 at 02:00 Miscellaneous Information 1 ea NOTE XX ; Start 11/04/16 at 19:30 Glucose (Glutose) 15 gm Q15M PRN PO DECREASED GLUCOSE; Start 11/04/16 at 19:30 Glucose (Glutose) 22.5 gm Q15M PRN PO DECREASED GLUCOSE; Start 11/04/16 at 19:30 Dextrose (D50w Syringe) 25 ml Q15M PRN IV DECREASED GLUCOSE; Start 11/04/16 at 19:30 Dextrose (D50w Syringe) 50 ml Q15M PRN IV DECREASED GLUCOSE; Start 11/04/16 at 19:30 Glucagon (Glucagen) 1 mg Q15M PRN IM DECREASED GLUCOSE; Start 11/04/16 at 19:30 Glucose (Glutose) 15 gm Q15M PRN BUCCAL DECREASED GLUCOSE; Start 11/04/16 at 19: 30 MOISES DIAZ MD Nov 06, 2016 13:41
[2016-11-06 19:30] VITALS: BP 162/77; PULSE 82; RESP 18
[2016-11-06] MEDS: ATORVASTATIN 20 MG TAB PO SCH (21:09)
--- NOTE | 2016-11-06 21:52 | CONS ---
Date/Time of Note Date/Time of Note DATE: 11/06/16 TIME: 21:47 Assessment/Plan Assessment/Plan Additional Assessment/Plan -POD #2, pain controlled walking with fww with PT/OT -Anemia , transfuse 2 units prbc, if hb appropriate response Hb >9.5, ok to d/c home with rehab -BP restarted linsinopril, improved, hydralazine prn added. expect BP elevation <180, stable for d/c follow up with pcp for medical issues For Dr. 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 surgery continues to improve looks forward to going home to [facility] Constitutional: improved, no complaints Exam/Review of Systems Vital Signs Vitals Vital Signs Date Time Temp Pulse Resp B/P Pulse Ox O2 Delivery O2 Flow Rate FiO2 11/06/16 07:36 98.0 97 20 145/67 100 11/05/16 06:12 Nasal Cannula 2.0 Intake and Output 11/05/16 11/05/16 11/06/16 15:00 23:00 07:00 Intake Total 760 ml 600 ml Balance 760 ml 600 ml Exam Constitutional: alert, oriented Psych: nl mood/affect, no complaints Head: atraumatic, normocephalic Eyes: nl conjunctiva ENMT: nl external ears & nose Neck: non-tender, supple Respiratory: clear to auscultation, normal air movement Cardiovascular: regular rate and rhythm Gastrointestinal: nl liver, spleen, soft Genitourinary - Female: nl adnexae Musculoskeletal: nl extremities to inspection Neurological: SEAT SCOOPER MACHINE II-XII intact, nl mental status, nl strength Results Result Diagram: 11/06/16 0435 11/06/16 0435 Results 24 hrs Laboratory Tests Test 11/06/16 04:35 11/06/16 08:16 11/06/16 17:38 11/06/16 21:13 Alanine Aminotransferase (ALT/SGPT) 69 Albumin 2.9 L Albumin/Globulin Ratio 1.45 Alkaline Phosphatase 38 L Anion Gap 12 Aspartate Amino Transf (AST/SGOT) 64 H Basophils # 0.0 Basophils % 0.3 Blood Morphology Comment Blood Urea Nitrogen 18 Calcium Level 8.7 Carbon Dioxide Level 29 Chloride Level 103 Creatinine 0.69 Direct Bilirubin 0.00 Eosinophils # 0.0 Eosinophils % 0.5 Globulin 2.00 Glucose Level 106 Hematocrit 22.8 L Hemoglobin 7.7 L Indirect Bilirubin 0.5 Lymphocytes # 1.7 Lymphocytes % 18.2 Mean Corpuscular Hemoglobin 26.3 L Mean Corpuscular Hemoglobin Concent 33.5 Mean Corpuscular Volume 78.5 L Mean Platelet Volume 9.7 Monocytes # 0.8 Monocytes % 9.0 Neutrophils # 6.8 Neutrophils % 72.0 Nucleated Red Blood Cells # 0.0 Nucleated Red Blood Cells % 0.0 Platelet Count 166 Potassium Level 3.7 Red Blood Count 2.91 L Red Cell Distribution Width 15.0 H Sodium Level 140 Total Bilirubin 0.5 Total Protein 4.9 L White Blood Count 9.4 # Bedside Glucose 113 123 120 Medications Medications Current Medications Oxycodone HCl (Roxicodone) 20 mg Q3H PRN PO PAIN LEVEL 8-10; Start 11/04/16 at 11:30 Oxycodone HCl (Roxicodone) 10 mg Q3H PRN PO PAIN LEVEL 4-7; Start 11/04/16 at 11 :30 Zolpidem Tartrate (Ambien) 5 mg HS PRN PO INSOMNIA; Start 11/04/16 at 11:30 Miscellaneous Information (Note) NOTE XX ; Start 11/04/16 at 11:30 Aspirin (Ecotrin) 325 mg BID PO Last administered on 11/06/16 21:08; Admin Dose 325 MG; Start 11/05/16 at 09:00 Celecoxib (Celebrex) 200 mg BID PO Last administered on 11/06/16 21:09; Admin Dose 200 MG; Start 11/05/16 at 09:00 Dexamethasone (Decadron) 4 mg DAILY@07 IV Last administered on 11/06/16 06:32; Admin Dose 4 MG; Start 11/05/16 at 07:00; Stop 11/07/16 at 06:59 Pantoprazole (Protonix Tab) 40 mg DAILY@06 PO Last administered on 11/06/16 06: 32; Admin Dose 40 MG; Start 11/06/16 at 06:00 Docusate Sodium/ Ferrous Fumarate (Marilin-Sequels) 1 tab BID PO Last administered on 11/06/16 21:09; Admin Dose 1 TAB; Start 11/05/16 at 09:00 Docusate Sodium (Colace) 200 mg BID PO Last administered on 11/06/16 21:09; Admin Dose 200 MG; Start 11/05/16 at 09:00; Stop 11/08/16 at 08:59 Simethicone (Mylicon) 80 mg TID PRN PO DISTENSION/GAS/BLOATING; Start 11/04/16 at 11:30 Senna/Docusate Sodium (Senokot-S) 2 tab BID PRN PO CONSTIPATION; Start 11/04/16 at 11:30 Magnesium Hydroxide (Milk Of Mag) 30 ml HS PRN PO CONSTIPATION; Start 11/04/16 at 11:30 Bisacodyl (Dulcolax Supp) 10 mg DAILY PRN [place] CONSTIPATION; Start 11/04/16 at 11: 30 Sodium Biphosphate/ Sodium Phosphate (Fleet Enema) 133 ml DAILY PRN [place] CONSTIPATION; Start 11/04/16 at 11:30 Diphenhydramine HCl (Benadryl) 25 mg Q4H PRN IM ITCHING OR RASH; Start 11/04/16 at 11:30 Ketorolac Tromethamine (Toradol) 30 mg DAILY@06 PRN INJ ADMINSTER BY SURGEON ONLY; Start 11/05/16 at 06:00; Stop 11/09/16 at 05:59 Bupivacaine HCl/ Epinephrine Bitart (Marcaine 0.25%/ Epi (Sdv) 30 ml) 20 ml DAILY@06 PRN INJ ADMINSTER BY SURGEON ONLY; Start 11/05/16 at 06:00; Stop at 05:59 Naloxone HCl 0.2 mg 0.2 mg Q2M PRN IV DECREASED REPIRATORY RATE; Start 11/04/16 at 11:30 Sodium Chloride (1/2 NS) 1,000 ml @ 80 mls/hr [id number] IV Last administered on 11/05/16 09:47; Admin Dose 80 MLS/HR; Start 11/04/16 at 19:00 Atorvastatin Calcium (Lipitor) 20 mg HS PO Last administered on 11/06/16 21:09 ; Admin Dose 20 MG; Start 11/04/16 at 21:00 Diagnostic Test (Pha) (Accucheck) 1 ea 02 XX ; Start 11/05/16 at 02:00 Miscellaneous Information 1 ea NOTE XX ; Start 11/04/16 at 19:30 Glucose (Glutose) 15 gm Q15M PRN PO DECREASED GLUCOSE; Start 11/04/16 at 19:30 Glucose (Glutose) 22.5 gm Q15M PRN PO DECREASED GLUCOSE; Start 11/04/16 at 19:30 Dextrose (D50w Syringe) 25 ml Q15M PRN IV DECREASED GLUCOSE; Start 11/04/16 at 19:30 Dextrose (D50w Syringe) 50 ml Q15M PRN IV DECREASED GLUCOSE; Start 11/04/16 at 19:30 Glucagon (Glucagen) 1 mg Q15M PRN IM DECREASED GLUCOSE; Start 11/04/16 at 19:30 Glucose (Glutose) 15 gm Q15M PRN BUCCAL DECREASED GLUCOSE; Start 11/04/16 at 19: 30 Hydralazine HCl (Apresoline) 25 mg Q4 PRN PO SBP GREATER THAN 160; Start at 21:00 Lisinopril (Zestril) 20 mg DAILY PO ; Start 11/06/16 at 21:30 Lisinopril (Zestril) 20 mg DAILY PO ; Start 11/07/16 at 09:00 Hydrochlorothiazide (Hydrochlorothiazide) 12.5 mg DAILY PO ; Start 11/06/16 at 21 :30 ELVIS QUIGLEY MD Nov 06, 2016 21:52
[2016-11-06] MEDS: HYDROCHLOROTHIAZIDE 12.5 MG CAP PO SCH (21:53)
[2016-11-06] MEDS: LISINOPRIL 20 MG TAB PO SCH (21:56)
[2016-11-07 01:16] VITALS: BP 168/69; PULSE 76; RESP 18
[2016-11-07] MEDS: ACCUCHECK XX SCH (02:00)
[2016-11-07 05:42] LABS: BASOPHILS % 0.3 % (0.0-2.0); EOSINOPHILS # 0.1 10^3/ul (0.0-0.5); EOSINOPHILS % 0.6 % (0.0-7.0); HEMATOCRIT 35.6 % (37.0-47.0); HEMOGLOBIN 11.8 g/dl (12.0-16.0); LYMPHOCYTES # 2.1 10^3/ul (0.8-2.9); LYMPHOCYTES % 17.9 % (15.0-51.0); MEAN CORPUSCULAR HEMOGLOBIN 26.8 pg (29.0-33.0); MEAN CORPUSCULAR HGB CONC 33.2 g/dl (32.0-37.0); MEAN CORPUSCULAR VOLUME 80.7 fl (82.0-101.0); MEAN PLATELET VOLUME 9.6 fl (7.4-10.4); MONOCYTE # 1.2 10^3/ul (0.3-0.9); MONOCYTES % 9.8 % (0.0-11.0); NEUTROPHIL # 8.5 10^3/ul (1.6-7.5); NEUTROPHILS % 71.4 % (39.0-77.0); PLATELET COUNT 198 10^3/UL (140-440); RED BLOOD COUNT 4.42 10^6/ul (4.20-5.40); RED CELL DISTRIBUTION WIDTH 15.8 % (11.5-14.5)
[2016-11-07 05:49] LABS: CONDITION 1; LH ANALYZER COMMENTS 1
[2016-11-07 05:59] LABS: CREATININE 0.53 mg/dl (0.44-1.00)
[2016-11-07 06:00] LABS: CALCIUM 8.7 mg/dl (8.4-10.2)
[2016-11-07] MEDS: PANTOPRAZOLE (EC) 40 MG TAB PO SCH (06:13)
[2016-11-07 06:16] VITALS: BP 156/75; PULSE 92
[2016-11-07 07:18] VITALS: BP 153/70; RESP 18
[2016-11-07] MEDS: INSULIN ASPART [NOVOLOG] 3 ML PEN SC SCH ×2 (07:50→11:40)
[2016-11-07] MEDS: ASPIRIN (EC) 325 MG TAB PO SCH (08:19)
[2016-11-07] MEDS: DOCUSATE SODIUM 100 MG CAP PO SCH (08:19)
[2016-11-07] MEDS: CELECOXIB 200 MG CAP PO SCH (08:20)
[2016-11-07] MEDS: metFORMIN 500 MG TAB PO SCH (08:20)
[2016-11-07] MEDS: FERROUS FUMARATE (SR) TAB PO SCH (08:20)
[2016-11-07] MEDS: HYDROCHLOROTHIAZIDE 12.5 MG CAP PO SCH (08:21)
[2016-11-07] MEDS: LISINOPRIL 20 MG TAB PO SCH (08:21)
[2016-11-07] MEDS: SOD CHLORIDE 0.45% 1,000 ML IV SCH (08:23)
[2016-11-07] MEDS ORDERED: LISINOPRIL 20 MG TAB PO SCH (09:00)
--- NOTE | 2016-11-07 11:48 | PN ---
Date/Time of Note Date/Time of Note DATE: 11/07/16 TIME: 11:47 Assessment/Plan Lines/Catheters IV Catheter Type (from Nrsg): Saline Lock Mejia in Place (from Nrsg): Yes Assessment/Plan Assessment/Plan Stable. H/H improved after transfusion. -D/C to home -Pain meds -Home PT -ASA/SCDs -F/u with Dr. Brooke in 1 week Subjective 24 Hr Interval Summary Doing well. Recieved 2 u PRBC yesterday. Eager to go home. Minimal knee pain. Exam/Review of Systems Vital Signs Vitals Vital Signs Date Time Temp Pulse Resp B/P Pulse Ox O2 Delivery O2 Flow Rate FiO2 11/07/16 07:18 99.1 91 18 153/70 96 11/07/16 01:16 Room Air 11/05/16 06:12 2.0 Intake and Output 11/06/16 11/06/16 11/07/16 14:59 22:59 06:59 Intake Total 1150 ml 1050 ml Balance 1150 ml 1050 ml Exam Free Text/Dictation Dressing dry Incision clean, dry, and intact without redness or drainage 5/5 Tibialis Anterior, EHL, Gastroc Soleus, Peroneals Normal sensation Palpable DP/PT, CR < 2 Sec No distal edema Results Result Diagram: 11/07/1644911/07/16 045 DEWAYNE BUSTOS MD Nov 07, 2016 11:48
--- NOTE | 2016-11-07 14:19 | CONS ---
Date/Time of Note Date/Time of Note DATE: 11/07/16 TIME: 14:17 Assessment/Plan Assessment/Plan Additional Assessment/Plan Hb improved no issues stable for d/c with pain medications k replaced Consultation Date/Type/Reason Admit Date/Time Nov 04, 2016 at 05:25 Type of Consultation: Medicine Exam/Review of Systems Vital Signs Vitals Vital Signs Date Time Temp Pulse Resp B/P Pulse Ox O2 Delivery O2 Flow Rate FiO2 11/07/16 07:18 99.1 91 18 153/70 96 11/07/16 01:16 Room Air 11/05/16 06:12 2.0 Intake and Output 11/06/16 11/06/16 11/07/16 15:00 23:00 07:00 Intake Total 1150 ml 1050 ml Balance 1150 ml 1050 ml Exam Constitutional: alert, oriented Psych: no complaints Head: normocephalic Neck: supple Respiratory: clear to auscultation Cardiovascular: regular rate and rhythm Results Result Diagram: 11/07/16 0450 11/07/16 0450 Results 24 hrs Laboratory Tests Test 11/06/16 17:38 11/06/16 21:13 11/07/16 04:50 11/07/16 08:15 Bedside Glucose 123 120 126 Anion Gap 13 Basophils # 0.0 Basophils % 0.3 Blood Morphology Comment Blood Urea Nitrogen 10 Calcium Level 8.7 Carbon Dioxide Level 34 H Chloride Level 99 Creatinine 0.53 Eosinophils # 0.1 Eosinophils % 0.6 Glucose Level 116 Hematocrit 35.6 #L Hemoglobin 11.8 #L Lymphocytes # 2.1 Lymphocytes % 17.9 Mean Corpuscular Hemoglobin 26.8 L Mean Corpuscular Hemoglobin Concent 33.2 Mean Corpuscular Volume 80.7 L Mean Platelet Volume 9.6 Monocytes # 1.2 H Monocytes % 9.8 Neutrophils # 8.5 H Neutrophils % 71.4 Nucleated Red Blood Cells # 0.0 Nucleated Red Blood Cells % 0.0 Platelet Count 198 Potassium Level 3.0 L Red Blood Count 4.42 # Red Cell Distribution Width 15.8 H Sodium Level 143 White Blood Count 12.0 #H ELVIS QUIGLEY MD Nov 07, 2016 14:19
== END 2016-11-07 13:35 | disposition home or self-care (01) | DRG 470 ==
LOC: REC 05:25 → MS1 19:55
PROC: 0SRD0J9 Replacement of Left Knee Joint with Synthetic Substitute, Cemented, Open Approach (ICD-10-PCS; principal; 2016-11-04 07:00)
DX: M17.12 Unilateral primary osteoarthritis, left knee (principal); D64.9 Anemia, unspecified; D62 Acute posthemorrhagic anemia; I10 Essential (primary) hypertension; R74.0 Nonspecific elevation of levels of transaminase and lactic acid dehydrogenase [LDH]; R73.03 Prediabetes; E78.5 Hyperlipidemia, unspecified
CPT/HCPCS: 36430; 73560; 73562; 80048; 80053; 81001; 81003; 82962; 85025; 86850; 86900; 86901; 86920; 87086; 88304; 88311; 97116; 97162; 97530; C1776; J0131; J0690; J0735; J1100; J1815; J1885; J2250; J2274; J2370; J2405; J2795; J3301; J3370; P9016; P9045

== ENCOUNTER → 2016-11-24 | Outpatient (CLI) | payer MEDICARE, BC ==
--- NOTE | 2016-11-25 01:39 | HKNOTE ---
DATE OF SERVICE: 11/24/2016 HISTORY OF PRESENT ILLNESS: A 76-year-old female 3 weeks status post left total knee arthroplasty presents today for a 3 week postop visit. The patient states that she has been followed by home health. [place] were removed by home health. In regards to wound, patient states it has been healing well. Minimum pain complaints. Has been taking postoperative pain medication, Celebrex, as well as [place]. Celebrex she has been taking twice a day and [place] as needed. The patient states she has not had much need for postoperative pain medication. Continues on aspirin for DVT prophylaxis. Denies any complications. The patient has been walking independently. She does state that she feels the left leg is longer than the right leg. Denies any calf pain. Overall, the patient states that she is doing very well. VITAL SIGNS: Blood pressure 134/64, temperature 98 degrees, pulse 103, respiratory rate 12, height 4 feet 11 inches, weight 135 pounds. PHYSICAL EXAMINATION: Range of motion to the left knee is 0 to 100 degrees with active extension/flexion. No tenderness to palpation. Wound healing well. Mild to moderate swelling/effusion. Slight limp with gait training. Normal sensory examination throughout the left lower extremity. A 2+ dorsalis pedis and posterior tibialis pulses. ASSESSMENT AND PLAN: The patient was seen with Dr. Brandon today. 1. Dr. Brandon recommends 3/8 of an inch shoe insert for the shorter limb for correction, as the patient feels that this is comfortable. 2. Outpatient physical therapy ordered today. The patient would like to present to [facility] in [place]. 3. Continue deep vein thrombosis prophylaxis with aspirin 325 mg. 4. Continue pain medications as needed. 5. The patient will follow up in additional 3 weeks in which x-rays will be taken as this will be her 6 week postoperative visit. 6. The patient may follow up sooner should she experience any complications. Dictated By: MICHELA SANCHES for RAFA BRANDON MD, KP/SCOTT Conf#: [id number] DID#: [id number]
== END | disposition home or self-care (01) ==
LOC: HKI 14:37
DX: Z47.1 Aftercare following joint replacement surgery (principal); Z96.652 Presence of left artificial knee joint
CPT/HCPCS: G0463

== ENCOUNTER → 2016-12-15 | Outpatient (CLI) | payer MEDICARE, BC ==
--- NOTE | 2016-12-15 16:30 | RADRPT ---
PROCEDURE: Left knee radiographs. CLINICAL INDICATION: Left knee pain. Postop. TECHNIQUE: Three views. Weight bearing. Frontal, lateral, and patellar view. COMPARISON: 11/04/2016. FINDINGS: There is no fracture or dislocation. Anterior skin piotr and surgical drains have been removed. There is a total left knee arthroplasty which appears satisfactory. There is no lytic or blastic lesion. There is a small joint effusion. IMPRESSION: 1. Small joint effusion. 2. Otherwise satisfactory postoperative appearance of the left knee. RPTAT: QQ .Robert Tellez MD, MD Date Time Electronically viewed and signed by .Robert Tellez MD, MD on 12/15/2016 16:30 .R/
--- NOTE | 2016-12-16 07:04 | HKNOTE ---
DATE OF SERVICE: 12/15/2016 SUBJECTIVE: A 76-year-old female who presents today for 6 weeks postop visit status post left total hip replacement. In regard to the left knee, patient denies any pain. The patient does experience tightness to the quadriceps tendon when she flexes. The patient states that she is able to flex up to 110 degrees and has near full extension. The patient is ambulating independently. The patient states that upon discharge from the hospital, she has had no need for assisted ambulatory device as she is walking well with no pain. Denies any falls. Denies any calf pain, chest pain or shortness of breath. The patient states that surgery was a great success. OBJECTIVE: VITAL SIGNS: Blood pressure is 143/63, temperature is 98.7, pulse 84, respiratory rate is 12, height is 4 feet 11 inches, weight is 135 pounds. PHYSICAL EXAMINATION: 1. Gait is normal and nonantalgic. It is important to note, patient is using shoe lift on the left side. 2. No tenderness to palpation. 3. Normal sensory examination to light touch. 4. The patient has full extension with flexion up to 110 degrees. Negative Homans sign/calf pain. IMAGING: X-ray performed on 12/15/2016 showing prosthesis appears to be well attached and integrated to the bone. There is slight medial deviation with small amount of cement that has broken through the cortex. The prosthesis is stable and continued well alignment. Also when correlated clinically, patient is having no pain and near full function to the left knee. PLAN: 1. The patient was given antibiotics card for dental prophylaxis today. 2. Discontinue any restrictions at this time. 3. Pain medication as needed. 4. The patient is currently going through outpatient physical therapy which has been going well. Follow up in 4-1/2 months for repeat evaluation to the left knee. Discussed antibiotic prophylaxis in detail. The patient was given our standard plastic card containing instructions for the use of prophylactic antibiotics as a guideline should infection develop anywhere in the body, there be the need for manipulation or scoping of the genitourinary tract or gastrointestinal tract, or for prophylaxis for dentistry. These instructions pertain for the rest of the patient's life. The patient was seen by Dr. Brandon in the office today. Dictated By: MICHELA SANCHES for RAFA BRANDON MD, KP/SCOTT Conf#: [id number] DID#: [id number] ALESSANDRO
== END | disposition home or self-care (01) ==
LOC: HKI 13:34
DX: Z47.1 Aftercare following joint replacement surgery (principal); Z96.642 Presence of left artificial hip joint

== ENCOUNTER → 2017-02-17 | Outpatient (CLI) | payer MEDICARE, BC ==
--- NOTE | 2017-02-18 05:55 | HKNOTE ---
DATE OF SERVICE: 02/17/2017 Patient comes for preoperative evaluation. She is scheduled to have a right total knee replacement on 02/22/2017. She has been cleared for surgery by Dr. Jc Cuevas. She has not given any blood for autotransfusion. She understands the risks associated with using hospital blood. She is agree able to using hospital blood if needed. Note that she lost a great deal of blood when she had her left knee replacement and had to be given a blood transfusion. if any blood transfusion is needed, should be given early on as soon as possible. She understands the risks associated with using hospital blood and she is agreeable to us ing the hospital blood if needed. She is totally delighted with the result of her left knee replace ment. Dictated By: RAFA VERGARA/SCOTT Conf#: [id number] DID#: [id number]
== END | disposition home or self-care (01) ==
LOC: HKI 13:21
DX: Z01.818 Encounter for other preprocedural examination (principal)
CPT/HCPCS: G0463

== ENCOUNTER 2017-02-22 05:43 | Inpatient (IN) | payer MEDICARE, BC ==
[~2017-02-22] VITALS: Ht 152.4 cm; Wt 58.7 kg
[2017-02-22] VITALS (24 sets, daily range): BP systolic 132–175; BP diastolic 60–83; PULSE 70–98; RESP 12–20; Ht 152.4 cm; Wt 58.7 kg
[2017-02-22] MEDS ORDERED: LANSOPRAZOLE 30 MG CAP PO ONE (06:00)
[2017-02-22] MEDS ORDERED: ACETAMINOPHEN 1000MG/100ML IV 100 ML IVPB ONE (06:00)
[2017-02-22] MEDS: KNEE PAIN COCKTAIL VANCO INJ SCH ×12 (06:00→09:03)
[2017-02-22] MEDS ORDERED: VANCOMYCIN 1 GM (PMX) 250 ML IVPB ONE (06:00)
[2017-02-22] MEDS ORDERED: TRANEXAMIC ACID IRR SCH ×2 (06:00)
[2017-02-22] MEDS ORDERED: DEXAMETHASONE 4 MG/ML 1 ML INJ IV ONE (06:00)
[2017-02-22] MEDS ORDERED: ONDANSETRON 4 MG INJ IV ONE (06:00)
[2017-02-22] MEDS ORDERED: oxyCODONE (CR) 10 MG TAB [oxyCONTIN] PO ONE (06:00)
[2017-02-22] MEDS ORDERED: CELECOXIB 200 MG CAP PO ONE (06:00)
[2017-02-22] MEDS ORDERED: SOD CHLORIDE 0.9% IRR SCH ×2 (06:00)
[2017-02-22] MEDS ORDERED: LACTATED RINGER'S 1,000 ML IV* SCH (06:00)
[2017-02-22] MEDS ORDERED: METF500T4 PO (06:11)
[2017-02-22] MEDS ORDERED: PRAV40TA76 PO (06:11)
[2017-02-22] MEDS ORDERED: LISI1TAB6 PO (06:11)
[2017-02-22] MEDS ORDERED: NEOSTIGMINE 3 MG/3 ML SYRINGE ONE (06:13)
[2017-02-22] MEDS ORDERED: MIDAZOLAM 1 MG/ML 2 ML INJ ONE (06:13)
[2017-02-22] MEDS ORDERED: ROCURONIUM 50 MG INJ ONE (06:13)
[2017-02-22] MEDS ORDERED: GLYCOPYRROLATE 0.4 MG INJ ONE (06:13)
[2017-02-22] MEDS ORDERED: PROPOFOL 20 ML ONE (06:13)
[2017-02-22] MEDS ORDERED: LIDOCAINE 2% (SDV) 5 ML INJ ONE (06:13)
[2017-02-22] MEDS ORDERED: LIDOCAINE 2%/EPI 30 ML INJ ONE (06:14)
[2017-02-22] MEDS ORDERED: ONDANSETRON 4 MG INJ ONE (06:14)
[2017-02-22] MEDS ORDERED: DEXAMETHASONE 4 MG/ML 1 ML INJ ONE (06:14)
[2017-02-22] MEDS ORDERED: FENTAnyl 50 MCG/ML VIAL ONE (06:14)
[2017-02-22] MEDS ORDERED: OXYCODONE/ACETAMINOPHEN (5/325) TAB PO PRN ×2 (06:30)
[2017-02-22] MEDS ORDERED: morphine (1 MG/ML) 10ML SYRINGE IV PRN ×3 (06:30)
[2017-02-22] MEDS ORDERED: LABETALOL HCL 20MG INJ IV PRN (06:30)
[2017-02-22] MEDS ORDERED: TRANEXAMIC ACID IVPB ONE (06:30)
[2017-02-22] MEDS ORDERED: ONDANSETRON 4 MG INJ IV PRN (06:30)
[2017-02-22] MEDS ORDERED: EPHEDrine SULFATE 50 MG/5 ML SYG IV PRN (06:30)
[2017-02-22] MEDS ORDERED: SOD CHLORIDE 0.9% IVPB ONE (06:30)
[2017-02-22] MEDS ORDERED: DIPHENHYDRAMINE 50 MG INJ IV PRN (06:30)
[2017-02-22] MEDS ORDERED: MEPERIDINE 25 MG INJ IV PRN (06:30)
[2017-02-22] MEDS ORDERED: MIDAZOLAM 1 MG/ML 2 ML INJ IV PRN (06:30)
[2017-02-22] MEDS ORDERED: FENTAnyl 50 MCG/ML VIAL IV PRN ×2 (06:30)
[2017-02-22] MEDS ORDERED: HYDROmorphONE (0.2 MG/ML) 10ML SYG IV PRN ×3 (06:30)
[2017-02-22] MEDS ORDERED: ATROPINE 1 MG/10 ML SYRINGE IV PRN (06:30)
[2017-02-22] MEDS ORDERED: hydrALAzine 20 MG INJ IV PRN (06:30)
[2017-02-22] MEDS ORDERED: BACITRACIN 50000 UNITS INJ ONE (06:48)
[2017-02-22] MEDS ORDERED: POLYMYXIN B 500000 UNIT INJ ONE (06:57)
[2017-02-22] MEDS ORDERED: VANCOMYCIN 1 GM INJ ONE (06:57)
[2017-02-22] MEDS ORDERED: TOBRAMYCIN 1.2 GM POWDER ONE (06:58)
[2017-02-22] MEDS ORDERED: BUPIVACAINE 0.25%/EPI (SDV) 30 ML INJ ONE (06:58)
[2017-02-22] MEDS ORDERED: METHYLENE BLUE 1% 10 ML INJ ONE (06:58)
[2017-02-22] MEDS ORDERED: EPHEDrine SULFATE 50 MG/5 ML SYG ONE (07:00)
[2017-02-22] MEDS ORDERED: SUCCINYLCHOLINE CHLORIDE 100 MG/5 ML SYG IV ONE (07:00)
[2017-02-22] MEDS ORDERED: LABETALOL HCL 20MG INJ ONE (07:00)
--- NOTE | 2017-02-22 07:12 | HPN ---
Date/Time of Note Date/Time of Note DATE: 02/22/17 TIME: 07:11 Interval H&P Admission Note Pt. seen H&P reviewed: No system changes MICHELA SHAY PA-C Feb 22, 2017 07:12
[2017-02-22] MEDS ORDERED: DEXTROSE 5%-LR 1,000 ML IV SCH (11:20)
[2017-02-22] MEDS ORDERED: DOCUSATE SODIUM 100 MG CAP PO ONE (11:30)
[2017-02-22] MEDS ORDERED: ZOLPIDEM 5 MG TAB PO PRN (11:30)
[2017-02-22] MEDS ORDERED: BETHANECHOL 25 MG TAB PO PRN (11:30)
[2017-02-22] MEDS ORDERED: oxyCODONE 5 MG TAB PO PRN ×3 (11:30)
[2017-02-22] MEDS ORDERED: HYDROmorphONE 0.2 MG/ML PCA IV PRN (11:30)
[2017-02-22] MEDS ORDERED: MAGNESIUM HYDROXIDE 30ML CUP PO PRN (11:30)
[2017-02-22] MEDS ORDERED: NA PHOSPHATE/BIPHOS 133 ML ENEMA PR PRN (11:30)
[2017-02-22] MEDS ORDERED: DIPHENHYDRAMINE 50 MG INJ IM PRN (11:30)
[2017-02-22] MEDS ORDERED: ASPIRIN (EC) 325 MG TAB PO ONE (11:30)
[2017-02-22] MEDS ORDERED: COUMADIN NOTE XX SCH (11:30)
[2017-02-22] MEDS ORDERED: NALOXONE (0.4 MG/ML) INJ IV PRN (11:30)
[2017-02-22] MEDS ORDERED: BISACODYL 10 MG SUPP PR PRN (11:30)
[2017-02-22] MEDS ORDERED: MEPERIDINE 10 MG/ML 30 ML PCA IV PRN (11:30)
[2017-02-22] MEDS ORDERED: SENNA/DOCUSATE NA (8.6MG/50MG) TAB PO PRN (11:30)
[2017-02-22] MEDS: ONDANSETRON 4 MG INJ IV SCH ×3 (12:25→23:30)
[2017-02-22] MEDS: CEFAZOLIN 1 GM/50 ML (PMX) 50 ML IVPB SCH ×2 (12:26→19:07)
[2017-02-22] MEDS: ACETAMINOPHEN 1000MG/100ML IV 100 ML IVPB SCH ×2 (12:26→18:36)
--- NOTE | 2017-02-22 12:27 | RADRPT ---
PROCEDURE: XR Knee. CLINICAL INDICATION: Status post right knee replacement TECHNIQUE: AP and lateral view of the right knee were obtained. The images reviewed on a PACS wor kstation. COMPARISON: None. FINDINGS: Complete right knee replacement is identified. Prosthetic components are in appropriate position an d alignment. No fractures or destructive lesions are observed. Surgical drain is seen in the knee. Soft tissue air is procedural in nature. IMPRESSION: Status post right knee replacement. Prosthetic components are in appropriate position and alignment . RPTAT: AA .Trever Tobias MD, MD Date Time Electronically viewed and signed by .Trever Tobias MD, MD on 02/22/2017 12:27 .P/
--- NOTE | 2017-02-22 12:48 | OPR ---
DATE OF OPERATION: 02/22/2017 PREOPERATIVE DIAGNOSIS: Exceedingly severe degenerative osteoarthritis of the right knee. POSTOPERATIVE DIAGNOSIS: Exceedingly severe degenerative osteoarthritis of the right knee. OPERATION PERFORMED: Right total knee replacement, using the OrthAlign computer alignment guide for the tibia cannot. SURGEON: Arnulfo Brooke MD BEET FLUMER: VERÓNICA Herzog ANESTHESIOLOGIST: Steven Rosenberg MD FINDINGS AT SURGERY: The patient was found to have exceedingly severe degenerative osteoarthritis o f all 3 compartments of the knee. There were huge osteophytes around the entire periphery of the di stal femur and the intercondylar notch was completely overgrown with osteophytes. Remarkably, the b one on this knee was of much better quality than that in the left knee, possibly because the left kn ee was more markedly incapacitating causing her to develop osteoporosis. Whatever the reason, we di d not need to use a stemmed component. Additionally, even if we thought that a stem might possibly be needed, the experience from the previous knee was that the varus deformity of the knee causing al ignment which allowed the tip of the tibial component to protrude through the bone. Note, that ther e was a very large number of small and large osteophytes and loose bodies in the posterior compartme nt of the knee. Some of these were attached to the posterior ligamentous structures. JUSTIFICATION FOR SURGERY: The knee was found to have end-stage osteoarthritis. The patient is a v clint active 76-year-old whose lifestyle is markedly affected by the arthritic knee. An extensive cou rse of conservative care has been tried prior to embarking on the knee replacement operation. There can be no reasonable expectation that any further conservative treatment will make any improvement to this patient's pain level and lifestyle. The risks and complications of the surgery were discuss ed with the patient at the preoperative visit as well as the risks and possible complications of blo od transfusion using hospital blood. The patient is agreeable to using hospital blood if needed. DESCRIPTION OF PROCEDURE: The patient was given intravenous antibiotics 1 hour prior to surgery. A n epidural anesthetic was initiated in the ICU holding area. The patient was taken to the operating room and given a light general anesthetic. The leg, foot, and ankle were prepared and draped in th e usual sterile fashion. The center of the ankle was marked at the midpoint between the 2 malleoli with a sterile marking pen. A tourniquet around the thigh was inflated to 225 mmHg after the leg sifuentes d been exsanguinated using an Esmarch bandage. The tourniquet was inflated at the initiation of pro cedure for a short period and was then again reinflated at the time of cementing the components part s. The total tourniquet time was 46 minutes. A longitudinal incision was made over the anterior aspect of the knee. The incision extended from t he tibial tubercle to a point just above the patella. The medial capsule was exposed by sharp and bailey ochoat dissection, and was incised 1/4 inch medial to the patella. A marking stitch was set on each s van of the incision at the midpoint of the capsule so as to enable accurate reapproximation at the e nd of the operation. A vastus split was made in the vastus medialis extending from the superior deuce e of the patella for approximately 5 cm between the line with the muscle fibers. The ends of the mu scle split at the patella were marked with a marking stitch on each side for later accurate reapprox imation. The patella was reflected laterally and osteophytes around the rim of the patella were rem brian. Osteophytes along the lateral femoral condyle were removed so as to facilitate lateral reflec tion of the patella. Posteromedial osteophytes were removed on the lateral side as well, so as to f ree up the lateral collateral ligament. Medial femoral osteophytes and posteromedial femoral osteop hytes were also removed at this time. This allowed for the knee to be brought into a more normal al ignment. A segment of bone was cut from the articular surface of the patella using a caliper to det ermine the exact thickness to be removed. The remaining thickness of the patella was 16 mm. The kn ee was flexed, and the patella was displaced laterally without eversion. Osteophytes in the femoral notch were removed. The remnants of the medial and lateral menisci were excised and the cruciate l igaments were excised. The medial collateral ligament was elevated as an osteo-periosteal flap from the proximal tibia. The distal end of the medial collateral ligament remained attached to the tibi a throughout the operation. The tibia was retracted forward with Hohmann retractor, inserted master electrician ior to the midpoint of the proximal tibia. The tibial jig was set in place in such a way as to alig n longitudinally with the anterior tibial spine, with the junction of the middle and medial 2/3 of t he patella tendon, and with the posterior intercondylar eminence of the tibia. An AP and lateral x- ray was obtained with the alignment jig in place. This showed that the alignment was satisfactory a fter some slight adjustments were made. The posterior slope of the tibia was set at 6 degrees. The tibial cutting block was attached to the proximal tibia with 2 Steinmann pins. An external alignme nt ney was placed on the cutting block to confirm the alignment of the cutting block. An Sj Wing feeler gauge was now placed on the superior aspect of the cutting block to further confirm the post erior slope of the tibia and the depth of the cut to be made. An oscillating saw was used to remove an appropriate amount of bone from the proximal tibia with the healthy side being used to measure t he cutting depth. The lateral femoral condyle of the distal femur was measured to determine the kajal ropriate size for the femoral component. The anterior condyle of the femur was partially removed wi th a rongeur. A medium-sized cutting block was attached to the distal femur with 2 Steinmann pins t hrough the pin holes in the block. The external alignment jig of this cutting block was lined up wi th the anterior surface of the femur and a central intercondylar hole for the intramedullary ney was drilled through the hole in the alignment block. The block was removed. A long Waterpik nozzle wa s used to flush fat from the intramedullary canal. The appropriately sized cutting block was now at tached to the femur by means of an intramedullary ney. The linking guide was inserted into the slot in the base of the femoral cutting block with the knee set at 90 degrees of flexion and with the li nking guide set flush with the proximal tibial cut in order to set the appropriate rotational alignm ent on the femoral cutting block. Ligament balance was checked at this point and was found to be ve ry satisfactory. Once the rotational alignment had been determined, and the ligaments found to be b alanced, the femoral cutting block was secured to the distal femur with 2 Steinmann pins. The anter ior and posterior cuts of the distal femur were made off the femoral cutting block. The cutting blo ck was removed and a spacer block was used to measure the flexion gap which was found to be 15 mm. The same spacer block size without the femoral element was used with the leg in extension to determi ne the amount of distal femur to be removed in the transverse plane. A 5-degree distal cutting bloc k was now set on the femoral intramedullary ney, and the ney was inserted into the intramedullary ca nal. The appropriate amount of bone to be removed was determined. The femoral cutting block was pi nned to the anterior surface of the femur with 2 Steinmann pins. The appropriate amount of bone was resected off the distal femur to give an extension gap equal to the thickness of the flexion gap. The cut needed to be repeated after initial cut in order to produce an extension gap the same size a s the flexion gap. By using the appropriate cutting blocks, the rest of the femoral cuts were made. The femoral trial component was installed and was found to fit perfectly. The femoral trial component was removed. T he proximal tibia was sized, and the appropriate tibial tray selected. The central fixation hole in the tibia was made using the tibial tray template and the appropriate instruments. The femoral and tibial trials and the trial tibial insert were installed, and the patella was prepared to accept th e 32 mm patellar dome component. The trial components were all removed. The tourniquet was inflate d. Soft tissues around the knee, especially the posterior capsule, were injected with a mixture of Naropin, Toradol, morphine, and clonidine. The cut surfaces of the bones were cleaned with pulsatil e Water Jet lavage and thoroughly dried. Sclerotic bone surfaces were drilled with a 1/8-inch drill . The tibial trial component was installed with methyl methacrylate cement followed by the femoral component and finally the patellar component. Cement was used on all 3 components. The cement was finger packed into the cut surfaces of the bone and pressurized with a rubber dam in order to get go od interdigitation of the cement into the bone. A lateral x-ray of the knee was obtained while the cement was hardening with the 17.[address] Those x-rays showed that the knee was still in hyperextension. It was puzzling as to why the knee was in hyperextension with the 17.5 mm insert , when we were cutting for a 15 mm insert. It was determined that removing the osseous structures f rom the posterior aspect of the knee and the cutting of the soft tissue tether, was the cause for th e increased size of the flexion gap. Once the cement was hard, all extraneous cement was removed. The cut edges of the medial capsule were held together at the midpoint with a towel clip, and the kn ee was put through a full range of motion. The patella was found to track satisfactorily. A latera l release was not required. At this point, the patella was found to track very well in the patellar groove of the femoral component. The knee was frequently irrigated with normal saline containing antibiotics with pulsatile lavage th roughout the entire operation as a prophylactic measure against infection. Once the cement was hard , the tourniquet was released. Bleeding points were cauterized. The total tourniquet time was 46 m inutes. The patient's vital signs remained stable throughout the operation. The permanent rotating bearing was installed. Superficial and deep Hemovac drains were set in place . The wound was closed using interrupted Vicryl on the capsule with FiberWire used at strategic poi nts such as the attachment of the distal ends of the vastus medialis at the split, and the tibial te ndon was also attached to the osteo-periosteal flap with FiberWire. The rest of the medial capsule was closed with interrupted Vicryl. A subcuticular stitch was inserted and piotr were used on the skin. The usual sterile dressings were applied. A Juan-Barnard compression dressing was applied a fter a sterile cooling pad had been set in place against the deep tissues by sterile cast padding. The patient's condition at the end of the procedure was satisfactory. Vital signs remaine d stable throughout the operation. The patient returned to the recovery room in stable condition. X-rays were obtained in the recovery room. Calf pumps were applied to both legs in the operating ro om. There were no problems or complications as far as we know. The sponge and instrument counts we re correct. COMPONENT INFORMATION: KNEE IMPLANT TYPE: LCS. FEMORAL COMPONENT SIZE: Medium. TIBIAL COMPONENT SIZE: #3. PATELLAR COMPONENT SIZE: 32 mm patellar dome. TIBIAL INSERT: 20 mm mobile bearing, constrained deep-dish by LCS. 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 TOTAL TOURNIQUET TIME: 46 minutes. TOTAL BLOOD LOSS: Approximately 200 mL. Dictated By: ARNULFO VERGARA/SCOTT Conf#: [id number] [facility]#: [id number]
--- NOTE | 2017-02-22 12:49 | RADRPT ---
PROCEDURE: XR Knee 2 Views. CLINICAL INDICATION: Intraoperative right knee replacement. Right knee pain. TECHNIQUE: AP and lateral view of the right knee were obtained. The images reviewed on a PACS wor kstation. COMPARISON: None. FINDINGS: Intraoperative components of a right knee replacement are identified and appear in grossly appropria te position and alignment. No destructive bony lesions are observed. IMPRESSION: Intraoperative components of a right knee replacement in grossly appropriate position and alignment. Please see procedure note for details. RPTAT: AA .Trever Tobias MD, MD Date Time Electronically viewed and signed by .Trever Tobias MD, on 02/22/2017 12:48 .P/
[2017-02-22] MEDS ORDERED: TRANEXAMIC ACID 590 MG in SOD CHLORIDE 0.9% 100 ML IVPB ONE ×2 (14:30→17:30)
[2017-02-22] MEDS: SOD CHLORIDE 0.45% 1,000 ML IV SCH (21:03)
[2017-02-22] MEDS ORDERED: GLUCOSE GEL 15 GRAM TUBE BUCCAL PRN (21:30)
[2017-02-22] MEDS ORDERED: GLUCOSE GEL 15 GRAM TUBE PO PRN ×2 (21:30)
[2017-02-22] MEDS ORDERED: DEXTROSE 50% 50 ML SYRINGE IV PRN ×2 (21:30)
[2017-02-22] MEDS ORDERED: GLUCAGON 1 MG INJ IM PRN (21:30)
--- NOTE | 2017-02-22 21:37 | CONS ---
DATE OF ADMISSION: 02/22/2017 DATE OF CONSULTATION: TYPE OF CONSULTATION: Medical. Thank you, Dr. Brooke, for asking me to participate in the medical management of this patient. REASON FOR CONSULTATION: To manage the patient's hypertension, hyperlipidemia and prediabetes. HISTORY OF PRESENT ILLNESS: This 76-year-old female is now postop a right total knee replacement by Dr. Brooke. The patient is awake and alert. She denies any chest pain or shortness of breath. The patient had her left knee replaced in October of this year. She did well after that surgery. She has been having increasing pain in the right knee and decided to undergo a right total knee rep lacement. 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 Patient also has renal cyst, liver cyst. PAST SURGICAL HISTORY: Tonsillectomy, adenoidectomy, peptic ulcer disease, previously on omeprazole , laparoscopic cholecystectomy in 2009, left total knee replacement in October of this year. ALLERGIES: NO KNOWN DRUG ALLERGIES. SOCIAL HISTORY: She is twice. Currently with a boyfriend. She has an adopted daughter. Retired [employer]. She has never smoked. FAMILY HISTORY: Remarkable for mother having heart disease, diabetes mellitus, macular degeneration . Father of coronary artery disease, diabetes mellitus, CVA. CURRENT MEDICATIONS: 1. Metformin 500 mg twice a day. 2. Pravastatin 20 mg a day. 3. Zestoretic 20/12.5 once a day. Patient has been off aspirin, omeprazole, calcium and omega 3 fish oil. PHYSICAL EXAMINATION: GENERAL: At this time reveals a well-developed female in no apparent distress. VITAL SIGNS: Temperature 99.1, pulse of 91, respirations 10, blood pressure 153/70, O2 saturation 9 6% on room air. HEAD: Normocephalic. EYES: Extraocular muscles intact. NOSE AND MOUTH: Normal. NECK: Supple. No neck vein distention. LUNGS: Clear to auscultation. HEART: Regular rhythm. No murmurs, gallops or rubs. ABDOMEN: Soft, nontender, no masses or megaly. EXTREMITIES: No peripheral edema. IMPRESSION: This patient is doing well postoperatively. Her blood pressure is normal. She has a h istory of prediabetes, but has lost weight recently. PLAN: 1. Resume some routine medications. 2. Check labs in the morning. 3. Postop total knee replacement protocol. 4. I will manage the patient's hypertension, prediabetes and hyperlipidemia. 5. I will follow the patient along with you medically. Dictated By: CHONG PEREA MD, ND/SCOTT Conf#: [id number] DID#: [id number]
[2017-02-22] MEDS ORDERED: INSULIN ASPART [NOVOLOG] 3 ML PEN SC SCH (22:00)
[2017-02-22] MEDS: ATORVASTATIN 10 MG TAB PO SCH (23:25)
[2017-02-23 00:01] VITALS: BP 96/53; PULSE 73
[2017-02-23] MEDS: ACCU-CHEK XX SCH (00:07)
[2017-02-23] MEDS: ACETAMINOPHEN 1000MG/100ML IV 100 ML IVPB SCH ×3 (04:08→19:00)
[2017-02-23] MEDS: CEFAZOLIN 1 GM/50 ML (PMX) 50 ML IVPB SCH (04:33)
[2017-02-23] MEDS: ONDANSETRON 4 MG INJ IV SCH (05:29)
[2017-02-23 05:36] VITALS: BP 120/56; PULSE 69
[2017-02-23] MEDS ORDERED: BUPIVACAINE 0.25%/EPI (SDV) 30 ML INJ INJ PRN (06:00)
[2017-02-23] MEDS ORDERED: KETOROLAC 15 MG INJ INJ PRN (06:00)
[2017-02-23 06:04] LABS: ADD SCAN DIFF NO
[2017-02-23 06:24] LABS: BASOPHILS % 0.1 % (0.0-2.0); HEMATOCRIT 28.8 % (37.0-47.0); LYMPHOCYTES % 5.9 % (15.0-51.0); MEAN CORPUSCULAR HEMOGLOBIN 26.5 pg (29.0-33.0); MEAN CORPUSCULAR HGB CONC 31.3 g/dl (32.0-37.0); MEAN CORPUSCULAR VOLUME 84.7 fl (82.0-101.0); MEAN PLATELET VOLUME 11.4 fl (7.4-10.4); MONOCYTE # 0.8 10^3/ul (0.3-0.9); NEUTROPHIL # 14.6 10^3/ul (1.6-7.5); NEUTROPHILS % 88.4 % (39.0-77.0); PLATELET COUNT 243 10^3/UL (140-415); WHITE BLOOD COUNT 16.5 10^3/ul (4.8-10.8)
[2017-02-23 06:42] LABS: ALBUMIN 3.3 g/dl (3.3-4.9); POTASSIUM 4.3 mmol/L (3.5-5.1)
[2017-02-23 06:44] LABS: CREATININE 0.54 mg/dl (0.44-1.00)
[2017-02-23 06:45] LABS: ALBUMIN/GLOBULIN RATIO 1.37; BILIRUBIN,INDIRECT 0.3 mg/dl (0-1.1); BILIRUBIN,TOTAL 0.3 mg/dl (0.2-1.3); CALCIUM 8.6 mg/dl (8.4-10.2); TOTAL PROTEIN 5.7 g/dl (6.1-8.1)
[2017-02-23 07:00] VITALS: BP 111/55; RESP 18
[2017-02-23] MEDS: DEXAMETHASONE 4 MG/ML 1 ML INJ IV SCH (07:07)
--- NOTE | 2017-02-23 07:13 | PN ---
Date/Time of Note Date/Time of Note DATE: 02/23/17 TIME: 07:11 Assessment/Plan VTE Prophylaxis VTE Prophylaxis Intervention: ambulation, anti-embolic stocking, SCD's, other ( Aspirin 325 mg twice daily.) Lines/Catheters IV Catheter Type (from Nrsg): Peripheral IV Mejia in Place (from Nrs): Yes Assessment/Plan Assessment/Plan -Hemovac Removed Today. 260 cc output. -Pain Cocktail Given -Pain Meds as needed -Dress change performed today -Patient having increased erythema around surgical wound with a white blood cell count of 16.5 on last lab draw. Has completed Ancef and white blood cell count continues to be elevated. Vancomycin ordered for additional infection prophylaxis especially with erythema to the surgical wound. -OOB with PT -ASA/SCDs for DVT Prophylaxis -Continue monitoring with Internal Medicine -Patient Stable Subjective 24 Hr Interval Summary 76-year-old female postop day 1 status post right total knee arthroplasty. Denies any pain complaints. Patient is very pleased status post surgery. Up and walking with front wheeled walker yesterday with physical therapy. Denies any fever, chills or malaise. No chest pain/tightness or shortness of breath. Denies any calf pain. Constitutional: no complaints Pain Control: well controlled Exam/Review of Systems Vital Signs Vitals Vital Signs Date Time Temp Pulse Resp B/P Pulse Ox O2 Delivery O2 Flow Rate FiO2 02/23/17 05:36 97.6 69 120/56 94 Room Air 02/22/17 19:46 20 02/22/17 12:37 2.0 Intake and Output 02/22/17 02/22/17 02/23/17 15:00 23:00 07:00 Intake Total 1500 ml 1055.9 ml 1430 ml Output Total 600 ml 440 ml 1860 ml Balance 900 ml 615.9 ml -430 ml Exam Free Text/Dictation -Hemovac: Intact. 260 cc output. -Pain Cocktail Drains: Intact -Incision: Clean, Dry and Intact with redness around surgical wound. Erythema is mild to moderate. No discharge or pain complaints. -5/5 Tibialis Anterior, EHL Gastrocnemius/Soleus and Peroneals -Normal Sensation -Palpable DP/PT, Capillary Refill <2 secs -No Distal Edema -Negative Mathew Sign/No calf pain -Toes Freely Movable Constitutional: alert, oriented, well developed Results Result Diagram: 02/23/17 0510 02/23/17 0515 MICHELA SHAY PA-C Feb 23, 2017 07:13
[2017-02-23] MEDS ORDERED: VANCOMYCIN IV PER PHARMACY XX SCH (07:30)
[2017-02-23] MEDS: ASPIRIN (EC) 325 MG TAB PO SCH ×2 (08:50→20:07)
[2017-02-23] MEDS: CELECOXIB 200 MG CAP PO SCH ×2 (08:50→20:07)
[2017-02-23] MEDS: HYDROCHLOROTHIAZIDE 12.5 MG CAP PO SCH (08:50)
[2017-02-23] MEDS: LISINOPRIL 20 MG TAB PO SCH (08:50)
[2017-02-23] MEDS: FERROUS FUMARATE (SR) TAB PO SCH ×2 (08:50→20:07)
[2017-02-23] MEDS: DOCUSATE SODIUM 100 MG CAP PO SCH ×2 (08:57→20:07)
[2017-02-23] MEDS: PANTOPRAZOLE (EC) 40 MG TAB PO SCH (09:21)
[2017-02-23] MEDS: VANCOMYCIN 750 MG in SOD CHLORIDE 0.9% 150 ML IVPB SCH (09:21)
[2017-02-23] MEDS: SOD CHLORIDE 0.45% 1,000 ML IV SCH ×2 (09:22→20:32)
[2017-02-23 16:31] LABS: ADD UMIC YES; URINE BILIRUBIN (Dip) NEGATIVE (NEGATIVE); URINE BLOOD (Dip) TRACE (NEGATIVE); URINE GLUCOSE (Dip) NEGATIVE (NEGATIVE); URINE KETONES (Dip) NEGATIVE (NEGATIVE); URINE LEUKOCYTE ESTERASE (Dip) NEGATIVE (NEGATIVE); URINE NITRITE (Dip) NEGATIVE (NEGATIVE); URINE TOTAL PROTEIN (Dip) NEGATIVE (NEGATIVE); URINE UROBILINOGEN (Dip) 0.2 E.U./dL (0.1-1.0)
[2017-02-23 17:23] LABS: URINE COLOR YELLOW (YELLOW)
[2017-02-23 17:24] LABS: URINE RBCS 0-2 /HPF (0)
--- NOTE | 2017-02-23 19:54 | CONS ---
Date/Time of Note Date/Time of Note DATE: 02/23/17 TIME: 19:50 Assessment/Plan Assessment/Plan Chief Complaint/Hosp Course 1.one day post op R TKR . She is doing well . She does have some R foot numbness probably due to epidural anesthesia . 2.continue current medication and PT . Problems: Consultation Date/Type/Reason Admit Date/Time Feb 22, 2017 at 05:43 Initial Consult Date 24 HR Interval Summary Free Text/Dictation She is post op a R TKR . She is feeling well except for some R foot numbness . Exam/Review of Systems Vital Signs Vitals Vital Signs Date Time Temp Pulse Resp B/P Pulse Ox O2 Delivery O2 Flow Rate FiO2 02/23/17 07:00 98.5 88 18 111/55 97 02/23/17 05:36 Room Air 02/22/17 12:37 2.0 Intake and Output 02/22/17 02/22/17 02/23/17 15:00 23:00 07:00 Intake Total 1500 ml 1055.9 ml 1430 ml Output Total 600 ml 440 ml 1860 ml Balance 900 ml 615.9 ml -430 ml Exam Constitutional: alert, oriented, well developed Respiratory: clear to auscultation, normal air movement Cardiovascular: regular rate and rhythm Gastrointestinal: soft Musculoskeletal: nl extremities to inspection Results Result Diagram: 02/23/17 0510 02/23/17 0515 Results 24 hrs Laboratory Tests Test 02/23/17 05:10 02/23/17 05:15 02/23/17 06:30 02/23/17 08:49 White Blood Count 16.5 #H Red Blood Count 3.40 #L Hemoglobin 9.0 #L Hematocrit 28.8 L Mean Corpuscular Volume 84.7 Mean Corpuscular Hemoglobin 26.5 L Mean Corpuscular Hemoglobin Concent 31.3 L Red Cell Distribution Width 15.0 H Platelet Count 243 Mean Platelet Volume 11.4 H Neutrophils % 88.4 H Lymphocytes % 5.9 L Monocytes % 5.0 Eosinophils % 0.0 Basophils % 0.1 Nucleated Red Blood Cells % 0.0 Neutrophils # 14.6 H Lymphocytes # 1.0 Monocytes # 0.8 Eosinophils # 0.0 Basophils # 0.0 Nucleated Red Blood Cells # 0.0 Sodium Level 134 L Potassium Level 4.3 Chloride Level 100 Carbon Dioxide Level 26 Anion Gap 12 Blood Urea Nitrogen 11 Creatinine 0.54 Glucose Level 154 Calcium Level 8.6 Total Bilirubin 0.3 Direct Bilirubin 0.00 Indirect Bilirubin 0.3 Aspartate Amino Transf (AST/SGOT) 22 Alanine Aminotransferase (ALT/SGPT) 25 Alkaline Phosphatase 53 Total Protein 5.7 L Albumin 3.3 Globulin 2.40 Albumin/Globulin Ratio 1.37 Urine Color YELLOW Urine Clarity CLEAR Urine pH 6.5 Urine Specific [place] <=1.005 L Urine Ketones NEGATIVE Urine Nitrite NEGATIVE Urine Bilirubin NEGATIVE Urine Urobilinogen 0.2 E.U./dL Urine Leukocyte Esterase NEGATIVE Urine Microscopic RBC 0-2 Urine Microscopic WBC 0-2 Urine Hemoglobin TRACE Urine Glucose NEGATIVE Urine Total Protein NEGATIVE Bedside Glucose 129 Medications Medications Current Medications Oxycodone HCl (Roxicodone) 20 mg Q3H PRN PO PAIN LEVEL 8-10; Start 02/22/17 at 11:30 Oxycodone HCl (Roxicodone) 10 mg Q3H PRN PO PAIN LEVEL 4-7; Start 02/22/17 at 11:30 Oxycodone HCl 5 mg 5 mg Q3H PRN PO PAIN LEVEL 1-3; Start 02/22/17 at 11:30 Acetaminophen (Ofirmev 1000mg/ 100ml Iv) 100 ml @ 400 mls/hr Q8H IVPB Last administered on 02/23/17 19:00; Admin Dose 400 MLS/HR; Start 02/22/17 at 11:30 ; Stop 02/24/17 at 03:44 Zolpidem Tartrate (Ambien) 5 mg HS PRN PO INSOMNIA; Start 02/22/17 at 11:30 Miscellaneous Information (Note) NOTE XX ; Start 02/22/17 at 11:30 Aspirin (Ecotrin) 325 mg BID PO Last administered on 02/23/17 08:50; Admin Dose 325 MG; Start 02/23/17 at 09:00 Celecoxib (Celebrex) 200 mg BID PO Last administered on 02/23/17 08:50; Admin Dose 200 MG; Start 02/23/17 at 09:00 Dexamethasone (Decadron) 4 mg DAILY@07 IV Last administered on 02/23/17 07:07 ; Admin Dose 4 MG; Start 02/23/17 at 07:00; Stop 02/26/17 at 06:59 Docusate Sodium/ Ferrous Fumarate (Marilin-Sequels) 1 tab BID PO Last administered on 02/23/17 08:50; Admin Dose 1 TAB; Start 02/23/17 at 09:00 Docusate Sodium (Colace) 200 mg BID PO ; Start 02/23/17 at 09:00; Stop 02/26/17 at 08:59 Simethicone (Mylicon) 80 mg TID PRN PO DISTENSION/GAS/BLOATING; Start 02/22/17 at 11:30 Senna/Docusate Sodium (Senokot-S) 2 tab BID PRN PO CONSTIPATION; Start at 11:30 Magnesium Hydroxide (Milk Of Mag) 30 ml HS PRN PO CONSTIPATION; Start 02/22/17 at 11:30 Bisacodyl (Dulcolax Supp) 10 mg DAILY PRN ME CONSTIPATION; Start 02/22/17 at 11 :30 Sodium Biphosphate/ Sodium Phosphate (Fleet Enema) 133 ml DAILY PRN ME CONSTIPATION; Start 02/22/17 at 11:30 Diphenhydramine HCl (Benadryl) 25 mg Q4H PRN IM ITCHING OR RASH; Start at 11:30 Ketorolac Tromethamine (Toradol) 15 mg DAILY@06 PRN INJ ADMINSTER BY SURGEON ONLY; Start 02/23/17 at 06:00; Stop 02/27/17 at 05:59 Bupivacaine HCl/ Epinephrine Bitart (Marcaine 0.25%/ Epi (Sdv) 30 ml) 20 ml DAILY@06 PRN INJ ADMINSTER BY SURGEON ONLY; Start 02/23/17 at 06:00; Stop 02/27 at 05:59 Naloxone HCl (Narcan) 0.2 mg Q2M PRN IV DECREASED REPIRATORY RATE; Start at 11:30 Lisinopril (Zestril) 20 mg DAILY PO Last administered on 02/23/17 08:50; Admin Dose 20 MG; Start 02/23/17 at 09:00 Atorvastatin Calcium (Lipitor) 10 mg HS PO Last administered on 02/22/17 23:25 ; Admin Dose 10 MG; Start 02/22/17 at 21:30 Diagnostic Test (Pha) 1 ea 1 ea 02 XX ; Start 02/23/17 at 02:00 Sodium Chloride (1/2 NS) 1,000 ml @ 80 mls/hr [id number] IV Last administered on 02/23/17 09:22; Admin Dose 80 MLS/HR; Start 02/22/17 at 21:00 Miscellaneous Information 1 ea NOTE XX ; Start 02/22/17 at 21:30 Glucose (Glutose) 15 gm Q15M PRN PO DECREASED GLUCOSE; Start 02/22/17 at 21:30 Glucose (Glutose) 22.5 gm Q15M PRN PO DECREASED GLUCOSE; Start 02/22/17 at 21: 30 Dextrose (D50w Syringe) 25 ml Q15M PRN IV DECREASED GLUCOSE; Start 02/22/17 at 21:30 Dextrose (D50w Syringe) 50 ml Q15M PRN IV DECREASED GLUCOSE; Start 02/22/17 at 21:30 Glucagon (Glucagen) 1 mg Q15M PRN IM DECREASED GLUCOSE; Start 02/22/17 at 21:30 Glucose (Glutose) 15 gm Q15M PRN BUCCAL DECREASED GLUCOSE; Start 02/22/17 at 21 :30 Hydrochlorothiazide 12.5 mg 12.5 mg DAILY PO Last administered on 02/23/17 08: 50; Admin Dose 12.5 MG; Start 02/23/17 at 09:00 Vancomycin HCl/ Sodium Chloride (Vancocin/NS) 150 ml @ 75 mls/hr Q24H IVPB Last administered on 02/23/17 09:21; Admin Dose 75 MLS/HR; Start 02/23/17 at 09 :00 Pantoprazole (Protonix Tab) 40 mg DAILY@06 PO Last administered on 02/23/17 09 :21; Admin Dose 40 MG; Start 02/23/17 at 06:00 CHONG PEREA MD Feb 23, 2017 19:54
[2017-02-23] MEDS: ATORVASTATIN 10 MG TAB PO SCH (20:07)
[2017-02-23 20:25] VITALS: BP 127/60; RESP 18
[2017-02-24] MEDS: ACCU-CHEK XX SCH (01:27)
[2017-02-24] MEDS: ACETAMINOPHEN 1000MG/100ML IV 100 ML IVPB SCH (05:21)
[2017-02-24] MEDS: PANTOPRAZOLE (EC) 40 MG TAB PO SCH (05:21)
[2017-02-24] MEDS: DEXAMETHASONE 4 MG/ML 1 ML INJ IV SCH (05:21)
[2017-02-24 05:49] LABS: ADD SCAN DIFF NO
[2017-02-24 05:58] LABS: BASOPHILS % 0.2 % (0.0-2.0); EOSINOPHILS # 0.1 10^3/ul (0.0-0.5); EOSINOPHILS % 0.8 % (0.0-7.0); HEMATOCRIT 27.6 % (37.0-47.0); HEMOGLOBIN 8.6 g/dl (12.0-16.0); LYMPHOCYTES # 2.7 10^3/ul (0.8-2.9); LYMPHOCYTES % 21.3 % (15.0-51.0); MEAN CORPUSCULAR HEMOGLOBIN 26.3 pg (29.0-33.0); MEAN CORPUSCULAR HGB CONC 31.2 g/dl (32.0-37.0); MEAN CORPUSCULAR VOLUME 84.4 fl (82.0-101.0); MEAN PLATELET VOLUME 11.3 fl (7.4-10.4); MONOCYTE # 0.9 10^3/ul (0.3-0.9); MONOCYTES % 7.3 % (0.0-11.0); NEUTROPHIL # 8.8 10^3/ul (1.6-7.5); NEUTROPHILS % 69.8 % (39.0-77.0); PLATELET COUNT 233 10^3/UL (140-415); RED BLOOD COUNT 3.27 10^6/ul (4.20-5.40); RED CELL DISTRIBUTION WIDTH 15.1 % (11.5-14.5); WHITE BLOOD COUNT 12.7 10^3/ul (4.8-10.8)
[2017-02-24] MEDS ORDERED: PANTOPRAZOLE (EC) 40 MG TAB PO SCH (06:00)
[2017-02-24 06:13] LABS: ALBUMIN 3.1 g/dl (3.3-4.9)
[2017-02-24 06:14] LABS: POTASSIUM 3.9 mmol/L (3.5-5.1)
[2017-02-24 06:16] LABS: BILIRUBIN,INDIRECT 0.2 mg/dl (0-1.1); BILIRUBIN,TOTAL 0.2 mg/dl (0.2-1.3); CREATININE 0.67 mg/dl (0.44-1.00); TOTAL PROTEIN 5.6 g/dl (6.1-8.1)
[2017-02-24 06:17] LABS: ALBUMIN/GLOBULIN RATIO 1.24; CALCIUM 8.8 mg/dl (8.4-10.2)
[2017-02-24 08:42] VITALS: BP 139/72; RESP 18
[2017-02-24] MEDS: DOCUSATE SODIUM 100 MG CAP PO SCH ×2 (08:44→20:52)
[2017-02-24] MEDS: HYDROCHLOROTHIAZIDE 12.5 MG CAP PO SCH (08:45)
[2017-02-24] MEDS: FERROUS FUMARATE (SR) TAB PO SCH ×2 (08:45→20:52)
[2017-02-24] MEDS: CELECOXIB 200 MG CAP PO SCH ×2 (08:45→20:52)
[2017-02-24] MEDS: LISINOPRIL 20 MG TAB PO SCH (08:45)
[2017-02-24] MEDS: ASPIRIN (EC) 325 MG TAB PO SCH ×2 (08:45→20:52)
[2017-02-24] MEDS: VANCOMYCIN 750 MG in SOD CHLORIDE 0.9% 150 ML IVPB SCH (08:46)
--- NOTE | 2017-02-24 08:46 | PN ---
Date/Time of Note Date/Time of Note DATE: 02/24/17 TIME: 08:43 Assessment/Plan VTE Prophylaxis VTE Prophylaxis Intervention: ambulation, anti-embolic stocking, SCD's, other ( Aspirin 325 mg twice daily.) Lines/Catheters IV Catheter Type (from Nrsg): Saline Lock Mejia in Place (from Nrsg): Yes Assessment/Plan Assessment/Plan -Pain Cocktail Given -Pain Meds as needed -Dress change performed today -OOB with PT -ASA/SCDs for DVT Prophylaxis -Continue monitoring with Internal Medicine -Patient Stable -WBC continues to downtrend especially with IV Vanco currently being given. -Likely discharge home tomorrow. Subjective 24 Hr Interval Summary 76-year-old female postop day 2 status post right total knee arthroplasty. Continues having no pain complaints. Patient very pleased status post surgery. Patient had elevated white blood cell count of 16.5, was given IV Vanco and now white blood cell count is 12.7. Denies any pain to the knee. Denies any fever, chills or malaise. No calf pain or shortness of breath. Denies any chest pain/tightness. Patient had numbness to the right lower extremity status post surgery. Was seen by anesthesia and explained that is likely medication from epidural wearing off. Patient does state that numbness has improved although it remains now to the plantar surface of the foot. Has been up and out of bed with physical therapy. Able to walk down the hallway with assisted ambulatory device of front wheeled walker. Overall patient doing well and continues to improve. Pain Control: well controlled Exam/Review of Systems Vital Signs Vitals Vital Signs Date Time Temp Pulse Resp B/P Pulse Ox O2 Delivery O2 Flow Rate FiO2 02/24/17 08:42 98.2 72 18 139/72 98 02/23/17 05:36 Room Air 02/22/17 12:37 2.0 Intake and Output 02/23/17 02/23/17 02/24/17 15:00 23:00 07:00 Intake Total 670 ml 1260 ml 1060 ml Output Total 900 ml 1000 ml Balance 670 ml 360 ml 60 ml Exam Free Text/Dictation -Hemovac: Removed -Pain Cocktail Drains: Intact -Incision: Clean, Dry and Intact. Erythematous surgical wound has improved since yesterday. No discharge. No tenderness to palpation. -5/5 Tibialis Anterior, EHL Gastrocnemius/Soleus and Peroneals -Flexing comfortably up to 90. -Normal Sensation -Palpable DP/PT, Capillary Refill <2 secs -No Distal Edema -Negative Mathew Sign/No calf pain -Toes Freely Movable Constitutional: alert, oriented, well developed Results Result Diagram: 02/24/17 0505 02/24/17 0505 MICHELA SHAY PA-C Feb 24, 2017 08:46
--- NOTE | 2017-02-24 08:49 | PDOCDIS ---
Discharge Instructions DIAGNOSIS Discharge Diagnosis: Status post right total knee arthroplasty. CONDITION Patient Condition: Stable HOME CARE INSTRUCTIONS: Diet Instructions: RegularSpecial Diet: REGULAR ACTIVITY: Activity Restrictions: Slowly Increase Activity Rest between Activity Avoid heavy lifting No Sexual Activity Do not Drive Do not operate Machinery Do not operate Power Tool Avoid Heavy Housework Keep Limb Elevated (While at rest. Ice modalities is also encouraged.) Weight Bearing (With front wheeled walker for assisted ambulation. May gradually progress to independent ambulation with time if comfortable.) Bathing Restrictions: Shower (Applying Tegaderm with pad prior to shower. Remove Tegaderm with pad after area is dry after shower. Repeat the steps each day until piotr are removed around 10 days postop.) FOLLOW UP/APPOINTMENTS Appointments March 16, 2017 at 1:45 PM. MICHELA SHAY PA-C Feb 24, 2017 08:49
[2017-02-24] MEDS: SOD CHLORIDE 0.45% 1,000 ML IV SCH ×2 (10:30→23:00)
--- NOTE | 2017-02-24 11:27 | CONS ---
Date/Time of Note Date/Time of Note DATE: 02/24/17 TIME: 11:25 Assessment/Plan Assessment/Plan Additional Assessment/Plan 1. Doing well post op right knee replacement. 2. Anemia, mild sob, rev with pt, will give 2U packed cells 3. Equiv right calf tend, will obtain venous study Consultation Date/Type/Reason Admit Date/Time Feb 22, 2017 at 05:43 Initial Consult Date Detailed Summary Respiratory: cough (mild and not productive), No shortness of breath Cardiovascular: No chest pain Gastrointestinal: no complaints Genitourinary: no complaints Musculoskeletal: bone/joint pain (mild right knee discomfort and sl right calf ache) Neurologic: other (no change in dysethesia right foot) Exam/Review of Systems Vital Signs Vitals Vital Signs Date Time Temp Pulse Resp B/P Pulse Ox O2 Delivery O2 Flow Rate FiO2 02/24/17 08:42 98.2 72 18 139/72 98 02/23/17 05:36 Room Air 02/22/17 12:37 2.0 Intake and Output 02/23/17 02/23/17 02/24/17 15:00 23:00 07:00 Intake Total 670 ml 1260 ml 1060 ml Output Total 900 ml 1000 ml Balance 670 ml 360 ml 60 ml Exam Neck: No jvd Respiratory: clear to auscultation Cardiovascular: regular rate and rhythm Gastrointestinal: soft Extremities: No edema (and ? right calf tend) Results Result Diagram: 02/24/17 0505 02/24/17 0505 Results 24 hrs Laboratory Tests Test 02/24/17 05:05 White Blood Count 12.7 #H Red Blood Count 3.27 L Hemoglobin 8.6 L Hematocrit 27.6 L Mean Corpuscular Volume 84.4 Mean Corpuscular Hemoglobin 26.3 L Mean Corpuscular Hemoglobin Concent 31.2 L Red Cell Distribution Width 15.1 H Platelet Count 233 Mean Platelet Volume 11.3 H Neutrophils % 69.8 Lymphocytes % 21.3 Monocytes % 7.3 Eosinophils % 0.8 Basophils % 0.2 Nucleated Red Blood Cells % 0.0 Neutrophils # 8.8 H Lymphocytes # 2.7 Monocytes # 0.9 Eosinophils # 0.1 Basophils # 0.0 Nucleated Red Blood Cells # 0.0 Sodium Level 137 Potassium Level 3.9 Chloride Level 102 Carbon Dioxide Level 29 Anion Gap 10 Blood Urea Nitrogen 18 Creatinine 0.67 Glucose Level 106 # Calcium Level 8.8 Total Bilirubin 0.2 Direct Bilirubin 0.00 Indirect Bilirubin 0.2 Aspartate Amino Transf (AST/SGOT) 23 Alanine Aminotransferase (ALT/SGPT) 23 Alkaline Phosphatase 44 Total Protein 5.6 L Albumin 3.1 L Globulin 2.50 Albumin/Globulin Ratio 1.24 Medications Medications Current Medications Oxycodone HCl (Roxicodone) 20 mg Q3H PRN PO PAIN LEVEL 8-10; Start 02/22/17 at 11:30 Oxycodone HCl (Roxicodone) 10 mg Q3H PRN PO PAIN LEVEL 4-7; Start 02/22/17 at 11:30 Oxycodone HCl (Roxicodone) 5 mg Q3H PRN PO PAIN LEVEL 1-3; Start 02/22/17 at 11 :30 Zolpidem Tartrate (Ambien) 5 mg HS PRN PO INSOMNIA; Start 02/22/17 at 11:30 Miscellaneous Information (Note) NOTE XX ; Start 02/22/17 at 11:30 Aspirin (Ecotrin) 325 mg BID PO Last administered on 02/24/17 08:45; Admin Dose 325 MG; Start 02/23/17 at 09:00 Celecoxib (Celebrex) 200 mg BID PO Last administered on 02/24/17 08:45; Admin Dose 200 MG; Start 02/23/17 at 09:00 Dexamethasone (Decadron) 4 mg DAILY@07 IV Last administered on 02/24/17 05:21 ; Admin Dose 4 MG; Start 02/23/17 at 07:00; Stop 02/26/17 at 06:59 Docusate Sodium/ Ferrous Fumarate (Marilin-Sequels) 1 tab BID PO Last administered on 02/24/17 08:45; Admin Dose 1 TAB; Start 02/23/17 at 09:00 Docusate Sodium (Colace) 200 mg BID PO Last administered on 02/24/17 08:44; Admin Dose 200 MG; Start 02/23/17 at 09:00; Stop 02/26/17 at 08:59 Simethicone (Mylicon) 80 mg TID PRN PO DISTENSION/GAS/BLOATING; Start 02/22/17 at 11:30 Senna/Docusate Sodium (Senokot-S) 2 tab BID PRN PO CONSTIPATION; Start at 11:30 Magnesium Hydroxide (Milk Of Mag) 30 ml HS PRN PO CONSTIPATION; Start 02/22/17 at 11:30 Bisacodyl (Dulcolax Supp) 10 mg DAILY PRN AR CONSTIPATION; Start 02/22/17 at 11 :30 Sodium Biphosphate/ Sodium Phosphate (Fleet Enema) 133 ml DAILY PRN AR CONSTIPATION; Start 02/22/17 at 11:30 Diphenhydramine HCl (Benadryl) 25 mg Q4H PRN IM ITCHING OR RASH; Start at 11:30 Ketorolac Tromethamine (Toradol) 15 mg DAILY@06 PRN INJ ADMINSTER BY SURGEON ONLY; Start 02/23/17 at 06:00; Stop 02/27/17 at 05:59 Bupivacaine HCl/ Epinephrine Bitart (Marcaine 0.25%/ Epi (Sdv) 30 ml) 20 ml DAILY@06 PRN INJ ADMINSTER BY SURGEON ONLY; Start 02/23/17 at 06:00; Stop 02/27 at 05:59 Naloxone HCl (Narcan) 0.2 mg Q2M PRN IV DECREASED REPIRATORY RATE; Start at 11:30 Lisinopril (Zestril) 20 mg DAILY PO Last administered on 02/24/17 08:45; Admin Dose 20 MG; Start 02/23/17 at 09:00 Atorvastatin Calcium (Lipitor) 10 mg HS PO Last administered on 02/23/17 20:07 ; Admin Dose 10 MG; Start 02/22/17 at 21:30 Diagnostic Test (Pha) 1 ea 1 ea 02 XX ; Start 02/23/17 at 02:00 Sodium Chloride (1/2 NS) 1,000 ml @ 80 mls/hr [id number] IV Last administered on 02/23/17 09:22; Admin Dose 80 MLS/HR; Start 02/22/17 at 21:00 Miscellaneous Information 1 ea NOTE XX ; Start 02/22/17 at 21:30 Glucose (Glutose) 15 gm Q15M PRN PO DECREASED GLUCOSE; Start 02/22/17 at 21:30 Glucose (Glutose) 22.5 gm Q15M PRN PO DECREASED GLUCOSE; Start 02/22/17 at 21: 30 Dextrose (D50w Syringe) 25 ml Q15M PRN IV DECREASED GLUCOSE; Start 02/22/17 at 21:30 Dextrose (D50w Syringe) 50 ml Q15M PRN IV DECREASED GLUCOSE; Start 02/22/17 at 21:30 Glucagon (Glucagen) 1 mg Q15M PRN IM DECREASED GLUCOSE; Start 02/22/17 at 21:30 Glucose (Glutose) 15 gm Q15M PRN BUCCAL DECREASED GLUCOSE; Start 02/22/17 at 21 :30 Hydrochlorothiazide 12.5 mg 12.5 mg DAILY PO Last administered on 02/24/17 08: 45; Admin Dose 12.5 MG; Start 02/23/17 at 09:00 Vancomycin HCl/ Sodium Chloride (Vancocin/NS) 150 ml @ 75 mls/hr Q24H IVPB Last administered on 02/24/17 08:46; Admin Dose 75 MLS/HR; Start 02/23/17 at 09 :00 Pantoprazole (Protonix Tab) 40 mg DAILY@06 PO Last administered on 02/24/17 05 :21; Admin Dose 40 MG; Start 02/23/17 at 06:00 EDER RIBERA MD Feb 24, 2017 11:27
[2017-02-24 14:25] VITALS: BP 136/63; PULSE 95; RESP 16
[2017-02-24 15:10] VITALS: BP 137/63; PULSE 83; RESP 18
--- NOTE | 2017-02-24 15:23 | RADRPT ---
PROCEDURE: US Lower extremity Venous. CLINICAL INDICATION: Right leg pain and swelling TECHNIQUE: Multiple sonographic images of the right lower extremity deep venous system was obtaine d utilizing grayscale, color-flow, compressive sonography and doppler imaging with augmentation. Th e images were reviewed on a PACS workstation. COMPARISON: None. FINDINGS: There is normal compressibility and flow within the right common femoral, deep femoral, superficial femoral and popliteal veins. Normal color flow is seen with respiratory variability and augmentation . IMPRESSION: No sonographic evidence for deep venous thrombosis in the right lower extremity. RPTAT: HPNM Physician Zulay Date Time Electronically viewed and signed by Physician Zulay on 02/24/2017 15:23 /
[2017-02-24 17:25] VITALS: BP 151/74; PULSE 84; RESP 16
[2017-02-24 18:25] VITALS: BP 150/76; PULSE 16; RESP 16
[2017-02-24] MEDS: ATORVASTATIN 10 MG TAB PO SCH (20:52)
[2017-02-25] MEDS: ACCU-CHEK XX SCH (00:34)
[2017-02-25] MEDS: PANTOPRAZOLE (EC) 40 MG TAB PO SCH (05:46)
[2017-02-25] MEDS: DEXAMETHASONE 4 MG/ML 1 ML INJ IV SCH (06:24)
[2017-02-25 08:07] VITALS: BP 189/85; RESP 18
--- NOTE | 2017-02-25 08:09 | PN ---
Date/Time of Note Date/Time of Note DATE: 02/25/17 TIME: 08:06 Assessment/Plan VTE Prophylaxis VTE Prophylaxis Intervention: ambulation, anti-embolic stocking, SCD's, other ( Aspirin 325 mg twice daily.) Lines/Catheters IV Catheter Type (from Nrsg): Saline Lock Mejia in Place (from Nrsg): Yes Assessment/Plan Assessment/Plan -Pain Cocktail Given -Pain Meds as needed -Dress change performed today -ASA for DVT Prophylaxis x 6 weeks outpatient discussed. -Continue monitoring as outpatient on discharge -Follow-up at scheduled postop outpatient appointment or sooner if there is any issue. -Tegaderm dressings given with specific instructions to use as outpatient to keep wound dry until piotr are moved around 10 days. -Patient will be need to be cleared with internal medicine given decreased hemoglobin with recent RBC infusion. -Anesthesia will also see patient prior to discharge due to ongoing numbness to the foot. -Patient Stable -Discharge to Home with home health if cleared by internal medicine. Patient is cleared from orthopedic standpoint. Subjective 24 Hr Interval Summary 76-year-old female postop day 3 status post right total knee arthroplasty. Denies any pain complaints. Patient continues with numbness to the foot. Patient was having mild shortness of breath yesterday with a hemoglobin of 8.8. 2 units of red blood cells ordered by Dr. Enzo gomez. When asked today, patient states that she is feeling much better with no shortness of breath. Up and walking throughout the hallways. States that she is able to climb stairs as she is performed with PT. Patient would like to go home today. Constitutional: no complaints Pain Control: well controlled Exam/Review of Systems Vital Signs Vitals Vital Signs Date Time Temp Pulse Resp B/P Pulse Ox O2 Delivery O2 Flow Rate FiO2 02/25/17 08:07 97.9 79 18 189/85 98 02/24/17 18:25 Room Air 02/22/17 12:37 2.0 Intake and Output 02/24/17 02/24/17 02/25/17 15:00 23:00 07:00 Intake Total 150 ml 350 ml 950 ml Output Total 900 ml Balance 150 ml 350 ml 50 ml Exam Free Text/Dictation -Hemovac: Removed -Pain Cocktail Drains: Intact -Incision: Clean, Dry and Intact with mild redness. No tenderness to palpation. No discharge presentation. No signs of infection. -5/5 Tibialis Anterior, EHL Gastrocnemius/Soleus and Peroneals -Flexing up to 90 today. -Normal Sensation -Palpable DP/PT, Capillary Refill <2 secs -No Distal Edema -Negative Mathew Sign/No calf pain -Toes Freely Movable Constitutional: alert, oriented, well developed Results Result Diagram: 02/24/17 0505 02/24/17 0505 MICHELA SHAY PA-C Feb 25, 2017 08:09
[2017-02-25 08:13] LABS: ADD SCAN DIFF NO
[2017-02-25] MEDS: LISINOPRIL 20 MG TAB PO SCH (08:27)
[2017-02-25] MEDS: HYDROCHLOROTHIAZIDE 12.5 MG CAP PO SCH (08:27)
[2017-02-25] MEDS: FERROUS FUMARATE (SR) TAB PO SCH (08:28)
[2017-02-25] MEDS: ASPIRIN (EC) 325 MG TAB PO SCH (08:29)
[2017-02-25] MEDS: DOCUSATE SODIUM 100 MG CAP PO SCH (08:29)
[2017-02-25] MEDS: CELECOXIB 200 MG CAP PO SCH (08:29)
[2017-02-25 08:46] LABS: BASOPHIL # 0.1 10^3/ul (0.0-0.1); BASOPHILS % 0.5 % (0.0-2.0); EOSINOPHILS # 0.2 10^3/ul (0.0-0.5); EOSINOPHILS % 1.8 % (0.0-7.0); HEMATOCRIT 39.1 % (37.0-47.0); HEMOGLOBIN 12.9 g/dl (12.0-16.0); LYMPHOCYTES # 1.6 10^3/ul (0.8-2.9); LYMPHOCYTES % 13.4 % (15.0-51.0); MEAN CORPUSCULAR HEMOGLOBIN 27.9 pg (29.0-33.0); MEAN CORPUSCULAR VOLUME 84.6 fl (82.0-101.0); MEAN PLATELET VOLUME 10.9 fl (7.4-10.4); MONOCYTE # 0.9 10^3/ul (0.3-0.9); MONOCYTES % 7.2 % (0.0-11.0); NEUTROPHIL # 9.1 10^3/ul (1.6-7.5); NEUTROPHILS % 76.3 % (39.0-77.0); PLATELET COUNT 231 10^3/UL (140-415); RED BLOOD COUNT 4.62 10^6/ul (4.20-5.40)
[2017-02-25] MEDS: VANCOMYCIN 750 MG in SOD CHLORIDE 0.9% 150 ML IVPB SCH (09:04)
[2017-02-25 09:14] VITALS: BP 186/83
[2017-02-25] MEDS: SOD CHLORIDE 0.45% 1,000 ML IV SCH (10:41)
[2017-02-25 10:42] VITALS: BP 161/76; PULSE 80
--- NOTE | 2017-02-25 11:09 | CONS ---
Date/Time of Note Date/Time of Note DATE: 02/25/17 TIME: 11:08 Assessment/Plan Assessment/Plan Additional Assessment/Plan 1. Doing well post op right knee replacement. 2. Mildly elevated BP, asx 3. Can dc if ok with ortho and pt Consultation Date/Type/Reason Admit Date/Time Feb 22, 2017 at 05:43 Detailed Summary Respiratory: No cough, No shortness of breath Cardiovascular: No chest pain Gastrointestinal: no complaints Genitourinary: no complaints Musculoskeletal: bone/joint pain (mild right knee pain) Exam/Review of Systems Vital Signs Vitals Vital Signs Date Time Temp Pulse Resp B/P Pulse Ox O2 Delivery O2 Flow Rate FiO2 02/25/17 10:42 80 161/76 02/25/17 08:07 97.9 18 98 02/24/17 18:25 Room Air 02/22/17 12:37 2.0 Intake and Output 02/24/17 02/24/17 02/25/17 15:00 23:00 07:00 Intake Total 150 ml 350 ml 950 ml Output Total 900 ml Balance 150 ml 350 ml 50 ml Exam Neck: No jvd Respiratory: clear to auscultation Cardiovascular: regular rate and rhythm Gastrointestinal: soft Extremities: No edema (and no calf tend) Results Result Diagram: 02/25/17 0800 02/24/17 0505 Results 24 hrs Laboratory Tests Test 02/25/17 08:00 White Blood Count 12.0 H Red Blood Count 4.62 # Hemoglobin 12.9 # Hematocrit 39.1 # Mean Corpuscular Volume 84.6 Mean Corpuscular Hemoglobin 27.9 L Mean Corpuscular Hemoglobin Concent 33.0 Red Cell Distribution Width 15.0 H Platelet Count 231 Mean Platelet Volume 10.9 H Neutrophils % 76.3 Lymphocytes % 13.4 L Monocytes % 7.2 Eosinophils % 1.8 Basophils % 0.5 Nucleated Red Blood Cells % 0.0 Neutrophils # 9.1 H Lymphocytes # 1.6 Monocytes # 0.9 Eosinophils # 0.2 Basophils # 0.1 Nucleated Red Blood Cells # 0.0 Vancomycin Level Trough < 5.0 L Medications Medications Current Medications Oxycodone HCl (Roxicodone) 20 mg Q3H PRN PO PAIN LEVEL 8-10; Start 02/22/17 at 11:30 Oxycodone HCl (Roxicodone) 10 mg Q3H PRN PO PAIN LEVEL 4-7; Start 02/22/17 at 11:30 Oxycodone HCl (Roxicodone) 5 mg Q3H PRN PO PAIN LEVEL 1-3; Start 02/22/17 at 11 :30 Zolpidem Tartrate (Ambien) 5 mg HS PRN PO INSOMNIA; Start 02/22/17 at 11:30 Miscellaneous Information (Note) NOTE XX ; Start 02/22/17 at 11:30 Aspirin (Ecotrin) 325 mg BID PO Last administered on 02/25/17 08:29; Admin Dose 325 MG; Start 02/23/17 at 09:00 Celecoxib (Celebrex) 200 mg BID PO Last administered on 02/25/17 08:29; Admin Dose 200 MG; Start 02/23/17 at 09:00 Dexamethasone (Decadron) 4 mg DAILY@07 IV Last administered on 02/25/17 06:24 ; Admin Dose 4 MG; Start 02/23/17 at 07:00; Stop 02/26/17 at 06:59 Docusate Sodium/ Ferrous Fumarate (Marilin-Sequels) 1 tab BID PO Last administered on 02/24/17 20:52; Admin Dose 1 TAB; Start 02/23/17 at 09:00 Docusate Sodium (Colace) 200 mg BID PO Last administered on 02/24/17 20:52; Admin Dose 200 MG; Start 02/23/17 at 09:00; Stop 02/26/17 at 08:59 Simethicone (Mylicon) 80 mg TID PRN PO DISTENSION/GAS/BLOATING; Start 02/22/17 at 11:30 Senna/Docusate Sodium (Senokot-S) 2 tab BID PRN PO CONSTIPATION Last administered on 02/25/17 06:24; Admin Dose 2 TAB; Start 02/22/17 at 11:30 Magnesium Hydroxide (Milk Of Mag) 30 ml HS PRN PO CONSTIPATION; Start 02/22/17 at 11:30 Bisacodyl (Dulcolax Supp) 10 mg DAILY PRN AR CONSTIPATION; Start 02/22/17 at 11 :30 Sodium Biphosphate/ Sodium Phosphate (Fleet Enema) 133 ml DAILY PRN AR CONSTIPATION; Start 02/22/17 at 11:30 Diphenhydramine HCl (Benadryl) 25 mg Q4H PRN IM ITCHING OR RASH; Start at 11:30 Ketorolac Tromethamine (Toradol) 15 mg DAILY@06 PRN INJ ADMINSTER BY SURGEON ONLY; Start 02/23/17 at 06:00; Stop 02/27/17 at 05:59 Bupivacaine HCl/ Epinephrine Bitart (Marcaine 0.25%/ Epi (Sdv) 30 ml) 20 ml DAILY@06 PRN INJ ADMINSTER BY SURGEON ONLY; Start 02/23/17 at 06:00; Stop 02/27 at 05:59 Naloxone HCl (Narcan) 0.2 mg Q2M PRN IV DECREASED REPIRATORY RATE; Start at 11:30 Lisinopril (Zestril) 20 mg DAILY PO Last administered on 02/25/17 08:27; Admin Dose 20 MG; Start 02/23/17 at 09:00 Atorvastatin Calcium (Lipitor) 10 mg HS PO Last administered on 02/24/17 20:52 ; Admin Dose 10 MG; Start 02/22/17 at 21:30 Diagnostic Test (Pha) 1 ea 1 ea 02 XX ; Start 02/23/17 at 02:00 Sodium Chloride (1/2 NS) 1,000 ml @ 80 mls/hr [id number] IV Last administered on 02/23/17 09:22; Admin Dose 80 MLS/HR; Start 02/22/17 at 21:00 Miscellaneous Information 1 ea NOTE XX ; Start 02/22/17 at 21:30 Glucose (Glutose) 15 gm Q15M PRN PO DECREASED GLUCOSE; Start 02/22/17 at 21:30 Glucose (Glutose) 22.5 gm Q15M PRN PO DECREASED GLUCOSE; Start 02/22/17 at 21: 30 Dextrose (D50w Syringe) 25 ml Q15M PRN IV DECREASED GLUCOSE; Start 02/22/17 at 21:30 Dextrose (D50w Syringe) 50 ml Q15M PRN IV DECREASED GLUCOSE; Start 02/22/17 at 21:30 Glucagon (Glucagen) 1 mg Q15M PRN IM DECREASED GLUCOSE; Start 02/22/17 at 21:30 Glucose (Glutose) 15 gm Q15M PRN BUCCAL DECREASED GLUCOSE; Start 02/22/17 at 21 :30 Hydrochlorothiazide (Hydrochlorothiazide) 12.5 mg DAILY PO Last administered on 02/25/17 08:27; Admin Dose 12.5 MG; Start 02/23/17 at 09:00 Pantoprazole 40 mg 40 mg DAILY@06 PO Last administered on 02/25/17 05:46; Admin Dose 40 MG; Start 02/23/17 at 06:00 Vancomycin HCl/ Sodium Chloride (Vancocin/NS) 150 ml @ 75 mls/hr Q12H IVPB ; Start 02/25/17 at 21:00 EDER RIBERA MD Feb 25, 2017 11:09
[2017-02-25 11:48] VITALS: BP 168/80; PULSE 77
--- NOTE | 2017-02-25 12:40 | DS ---
Date/Time of Note Date/Time of Note DATE: 02/25/17 TIME: 12:36 Discharge Summary Admission/Discharge Info Admit Date/Time Feb 22, 2017 at 05:43 Discharge Date/Time 02/25/2017 Final Diagnosis Status post right total knee arthroplasty. Patient Condition: Stable Hospital Course On the day of admission, the patient underwent right total knee arthroplasty Intraoperative complications: None Postoperative complications: None The patient was given prophylactic antibiotics and anticoagulants. On the day of surgery and first postoperative day patient was started on gait training and was taught usual restrictions following knee replacement Suction drain removed on the first postoperative day and the dressings were changed. The wound was found to be clean and healing well. There was no sign of infection. Pain cocktail given. Patient had elevated white blood cell count around 16.5. IV Vanco was given and white blood cell count was reduced. Mild erythema to the wound. Improved over time. Patient complains of numbness to the foot. On the second postoperative day, patient continued with inpatient PT. Dressings were changed. Wound was found to be clean and healing well. No signs of infection. Pain cocktail given. Patient had decreased hemoglobin of 8.8. She also had mild shortness of breath. Was seen by internal medicine, Dr. Barrios and given 2 units of blood. Hemoglobin improved and patient had no ongoing symptoms of shortness of breath. Continue with numbness to the foot however. No pain complaints of the knee. On the day of discharge, the wound was clean and healing well; there was no sign of infection. The dressings were changed. Patient was also seen by Dr. Brooke who has informed the patient that numbness could likely be due to pain cocktail. Numbness sensation is expected to improve within 3-6 months but it was specifically clarified to the patient by Dr. Brooke that there is no way to know for sure expected time of improved nerve symptoms.. Patient states understanding and compliance. Patient was also provided with postoperative medication in regards to gabapentin for neuropathic pain/symptoms. Discharge Temperature: 97.9 Discharge White Blood Cell Count: 12 Discharge Hemoglobin: 12.9 The patient was discharged home with home health. Arrangements were made for visiting nurses and home health/physical therapy. Tegaderm with pad also provided for patient. Instructions given on how to use to keep wound dry while showering. Patient may discontinue use of Tegaderm with pad after piotr have been removed around 10 days postoperatively. The patient will be seen in office at scheduled postoperative evaluation date given on their preoperative exam. Should patient complain of any problems prior to scheduled postoperative evaluation date, they may call into outpatient clinic to determine if they need to be scheduled at sooner appointment to be seen immediately if needed. Discharge medications: As per medication reconciliation form Diet: Same as preadmission diet. This is Michela Jacinto PA-C dictating discharge summary for Dr. Arnulfo Brooke. Home Meds Reported Medications Metformin Hcl* (Metformin Hcl*) 500 Mg Tablet, 500 MG PO WITH BREAKFAST, #30 TAB 02/22/17 Pravastatin Sodium* (Pravastatin Sodium*) 40 Mg Tablet, 40 MG PO HS, TAB 02/22/17 Lisinopril/Hydrochlorothiazide (Lisinopril-Hctz 20-12.5 mg Tab) 1 Each Tablet, 1 EACH PO DAILY, TAB 02/22/17 Follow-up Plan Patient will follow-up at 3 weeks postop for repeat evaluation. Patient made aware that she may follow-up sooner, should there be any issues and she states understanding and compliance. Pending Labs Laboratory Tests Test 02/25/17 08:00 White Blood Count 12.010^3/ul (4.8-10.8) Red Blood Count 4.6210^6/ul (4.20-5.40) Hemoglobin 12.9g/dl (12.0-16.0) Hematocrit 39.1% (37.0-47.0) Mean Corpuscular Volume 84.6fl (82.0-101.0) Mean Corpuscular Hemoglobin 27.9pg (29.0-33.0) Mean Corpuscular Hemoglobin Concent 33.0g/dl (32.0-37.0) Red Cell Distribution Width 15.0% (11.5-14.5) Platelet Count 01327^3/UL (140-415) Mean Platelet Volume 10.9fl (7.4-10.4) Neutrophils % 76.3% (39.0-77.0) Lymphocytes % 13.4% (15.0-51.0) Monocytes % 7.2% (0.0-11.0) Eosinophils % 1.8% (0.0-7.0) Basophils % 0.5% (0.0-2.0) Nucleated Red Blood Cells % 0.0/100WBC (0.0-0.0) Neutrophils # 9.110^3/ul (1.6-7.5) Lymphocytes # 1.610^3/ul (0.8-2.9) Monocytes # 0.910^3/ul (0.3-0.9) Eosinophils # 0.210^3/ul (0.0-0.5) Basophils # 0.110^3/ul (0.0-0.1) Nucleated Red Blood Cells # 0.010^3/ul (0.0-0.0) Vancomycin Level Trough < 5.0ug/ml (10.0-20.0) MICHELA SHAY PA-C Feb 25, 2017 12:40
[2017-02-25] MEDS ORDERED: VANCOMYCIN 750 MG in SOD CHLORIDE 0.9% 150 ML IVPB SCH (21:00)
== END 2017-02-25 13:12 | disposition home health service (06) | DRG 470 ==
LOC: REC 05:43 → EDSTATUS 07:00 → MS1 12:45
PROC: 0SRC0J9 Replacement of Right Knee Joint with Synthetic Substitute, Cemented, Open Approach (ICD-10-PCS; principal; 2017-02-22 07:00)
PROC: 30233N1 Transfusion of Nonautologous Red Blood Cells into Peripheral Vein, Percutaneous Approach (ICD-10-PCS; 2017-02-24)
DX: M17.11 Unilateral primary osteoarthritis, right knee (principal); E11.9 Type 2 diabetes mellitus without complications; D64.9 Anemia, unspecified; E55.9 Vitamin D deficiency, unspecified; I10 Essential (primary) hypertension; E78.5 Hyperlipidemia, unspecified; L71.9 Rosacea, unspecified; Z96.652 Presence of left artificial knee joint; Z90.49 Acquired absence of other specified parts of digestive tract; R20.0 Anesthesia of skin; T88.59XA Other complications of anesthesia, initial encounter; T41.3X5A Adverse effect of local anesthetics, initial encounter; Y92.230 Patient room in hospital as the place of occurrence of the external cause; Z79.82 Long term (current) use of aspirin; Z79.4 Long term (current) use of insulin
CPT/HCPCS: 36430; 73560; 80053; 80202; 81001; 81003; 82962; 85025; 86850; 86900; 86901; 86920; 87086; 88304; 88311; 93971; 97110; 97116; 97163; 97530; C1776; J0131; J0330; J0690; J0735; J1100; J1815; J1885; J2250; J2274; J2405; J2710; J2795; J3010; J3370; J7120; J7121; P9016

== ENCOUNTER → 2017-03-09 | Outpatient (CLI) | payer MEDICARE, BC ==
[~2017-03-09] MED LIST: LISI1TAB6 PO; METF500T4 PO; PRAV40TA76 PO
--- NOTE | 2017-03-09 14:52 | PN ---
Date/Time of Note Date/Time of Note DATE: 03/09/17 TIME: 14:48 Outpatient Progress Note Chief Complaint 2 week postop visit status post right total knee arthroplasty. HPI 76-year-old female presents today for two-week postoperative visit status post right total knee arthroplasty on 02/22/2017. Patient's pain is significantly improved. She has mild pain complaints around the knee. Patient is walking independently. She is very pleased with her improvement in range of motion as she states that she can now reach up to 120. Continues with numbness to the plantar surface of the foot with little to no improvement. Has been completing home physical therapy and has prescription to initiate outpatient physical therapy. Denies any chest pain/tightness. No calf pain. Review of Systems Const: No Fever, no chills, no Fatigue, normal appetite, no diaphoresis. Resp: No SOB, no wheezing, no chest pain. CV: No chest pain, no palpitaions, no PAUL. Physical Exam Blood pressure is 137/64, temperature is 98.6, pulse is 89, respiratory rate is 12, height is 4 feet 11 inches, weight is 121 pounds. General Appearance: well-developed, well-nourished, in no acute distress. Right knee: Patient is walking independently. Gait is normal. Mild tenderness to palpation to the medial side of the knee just distal to the knee joint. Wound is clean dry and intact with Steri-Strips applied. No signs of infection. Range of motion is 0-120 actively. 4+/5 strength on resistance. Allergies Coded Allergies: No Known Allergies (Verified Allergy, Unknown, 02/22/17) Assessment/Plan * Initiate outpatient physical therapy. * Continue with aspirin 325 mg twice daily for DVT prophylaxis. * Continue with postoperative pain medications on an as-needed basis. * Patient is already in possession of antibiotic card. Dental prophylaxis discussed today. * Follow-up 1 week for three-week postoperative visit. Antibiotic card provided for patient. Patient made aware that dental prophylaxis will be necessary prior to any dental procedure for the remainder of their lifetime. Patient is aware that they must contact their dentist prior to any procedure to inform them of previous joint replacement with prosthesis implant so appropriate antibiotic may be prescribed to lower risk of joint infection status post surgery. Card will also serve as confirmation should patient be traveling and have to go through security such as at an airport. Medications Home Meds Reported Medications Metformin Hcl* (Metformin Hcl*) 500 Mg Tablet, 500 MG PO WITH BREAKFAST, #30 TAB 02/22/17 Pravastatin Sodium* (Pravastatin Sodium*) 40 Mg Tablet, 40 MG PO HS, TAB 02/22/17 Lisinopril/Hydrochlorothiazide (Lisinopril-Hctz 20-12.5 mg Tab) 1 Each Tablet, 1 EACH PO DAILY, TAB 02/22/17 MICHELA SHAY PA-C March 09, 2017 14:52
== END | disposition home or self-care (01) ==
LOC: HKI 14:25
DX: Z47.1 Aftercare following joint replacement surgery (principal); Z96.651 Presence of right artificial knee joint
CPT/HCPCS: G0463

== ENCOUNTER → 2017-03-16 | Outpatient (CLI) | payer MEDICARE, BC ==
--- NOTE | 2017-03-16 14:08 | PN ---
Date/Time of Note Date/Time of Note DATE: 03/16/17 TIME: 14:06 Outpatient Progress Note Chief Complaint 3 week postop right total knee replacement HPI 76-year-old female presents today for three-week postoperative visit status post right total knee replacement performed on 02/22/2017. Patient denies any pain complaints. Range of motion continues to improve. Currently, performing at home physical therapy. Patient continues with numbness to the posterior lower extremity down to the plantar surface of the foot. Denies any falls that she was last seen. Walking independently with no ambulatory device. Patient is doing well status post surgery. Review of Systems Const: No Fever, no chills, no Fatigue, normal appetite, no diaphoresis. Resp: No SOB, no wheezing, no chest pain. CV: No chest pain, no palpitaions, no PAUL. Physical Exam Blood pressure is 143/65, temperature is 98.8, pulse is 87, respiratory rate is 12, height is 4 feet 11 inches, weight is 127 pounds. General Appearance: well-developed, well-nourished, in no acute distress. Right knee: Wound healing well. Clean dry and intact. No signs of infection. No tenderness to palpation. Patient has complaints of numbness primarily along the lateral side of surgical wound. Negative Homans sign. Toes are freely movable. 2+ pedal pulses. Patient is able to achieve full active extension. Patient is able to actively flex up to 105. No discomfort with range of motion. 5/5 strength on resistance. Allergies Coded Allergies: No Known Allergies (Verified Allergy, Unknown, 02/22/17) Assessment/Plan -Wound healing well after staple removal. No signs of infection. -Continue ASA 325 mg twice daily for DVT prophylaxis until 6 weeks status post surgery. -No signs of DVT. -Patient progressing well. -Follow-up at 6 week postop appointment. X-rays will be performed at 6 weeks postoperative appointment. -Patient made aware that they may follow-up sooner, should they experience any issues or complications as we will be glad to see them. -Order for outpatient physical therapy given today with focus on improved range of motion. Medications Home Meds Reported Medications Metformin Hcl* (Metformin Hcl*) 500 Mg Tablet, 500 MG PO WITH BREAKFAST, #30 TAB 02/22/17 Pravastatin Sodium* (Pravastatin Sodium*) 40 Mg Tablet, 40 MG PO HS, TAB 02/22/17 Lisinopril/Hydrochlorothiazide (Lisinopril-Hctz 20-12.5 mg Tab) 1 Each Tablet, 1 EACH PO DAILY, TAB 02/22/17 MICHELA SHAY PA-C March 16, 2017 14:08
== END | disposition home or self-care (01) ==
LOC: HKI 13:29
DX: Z09 Encounter for follow-up examination after completed treatment for conditions other than malignant neoplasm (principal); Z96.651 Presence of right artificial knee joint
CPT/HCPCS: G0463

== ENCOUNTER → 2017-04-06 | Outpatient (CLI) | payer MEDICARE, BC ==
--- NOTE | 2017-04-06 14:50 | PN ---
Date/Time of Note Date/Time of Note DATE: 04/06/17 TIME: 14:44 Outpatient Progress Note Chief Complaint 6 weeks status post right total knee replacement HPI 76-year-old female presents today for 6 week postoperative visit status post right total knee replacement performed on 02/22/2017. She is also status post left total knee replacement performed on 11/04/2016. Patient is expressing pain complaints with weightbearing that she states can travel up to a 6/10 on the pain scale to the right knee. She has been overcompensating with the left knee and is beginning to experience some discomfort to the left knee that is mild at this time. Denies any falls or injury. She had evaluation with neurologist Dr. Stout who performed evaluation showing no signs of clear-cut nerve injury. Patient states that neurologist feels that continued nerve sensations along the plantar surface of the right foot is due to nerve irritation while performing surgery. Patient has recently finished her gabapentin 100 mg twice daily. She is no longer taking pain medications as she would like to avoid opiate medications at all costs. Continues with physical therapy which has been increasing her functionality. Review of Systems Const: No Fever, no chills, no Fatigue, normal appetite, no diaphoresis. Resp: No SOB, no wheezing, no chest pain. CV: No chest pain, no palpitaions, no PAUL. Physical Exam Blood pressure is 126/60, temperature is 98.4, pulse is 109, respiratory rate is 12, height is 5 feet, weight is 122 pounds General Appearance: well-developed, well-nourished, in no acute distress. Right knee: Patient is able to perform full extension with flexion up to 123. No pain with range of motion on exam today. Gait is normal. She is walking independently without any assisted ambulatory device. Negative Homans sign. Normal sensory examination to light touch. Patient does have complaints of tingling sensation along the plantar surface of the foot. Toes are freely movable. 2+ pedal pulses. Imaging X-ray of the right knee performed on 04/06/2017 showing all components appearing well aligned, attached and integrated to the bone. No signs of any lucency between metal and bone. Allergies Coded Allergies: No Known Allergies (Verified Allergy, Unknown, 02/22/17) Assessment/Plan -Patient progressing well -Surgical wound continues to heal well. -No signs of infection or DVT on exam. -X-rays showing no abnormalities in regards to prosthesis attachment to bone. -Range of motion is improved status post total knee replacement. -Patient respectfully declines offer for prescription of opiate pain medication. Gabapentin 100 mg 3 times daily #90 tablets with 2 refills provided today for neuropathic pain complaints. -At home therapy discussed today. Continue with at home exercises as well. Anti-inflammatories as needed for pain. -Antibiotic prophylaxis card provided on previous visit. -Follow-up 6 months status post surgery. If patient is doing well at that time , possible follow-up on as-needed basis from that point. Patient may call in to office in follow-up sooner if she feels that she needs to be seen. Dental prophylaxis discussed in detail today. Patient given prophylaxis card with antibiotic options. Should patient have allergy to specific medication ( eg penicillin) alternative options are also provided on the card. Patient is aware that antibiotics should be taken prior to any procedures to prevent increased risk of infection to the joint. Patient is aware that this will be for the rest of their life. Patient states understanding and compliance. Patient has also been seen and evaluated by Dr. Brooke today who agrees with plan. Medications Home Meds Reported Medications Metformin Hcl* (Metformin Hcl*) 500 Mg Tablet, 500 MG PO WITH BREAKFAST, #30 TAB 02/22/17 Pravastatin Sodium* (Pravastatin Sodium*) 40 Mg Tablet, 40 MG PO HS, TAB 02/22/17 Lisinopril/Hydrochlorothiazide (Lisinopril-Hctz 20-12.5 mg Tab) 1 Each Tablet, 1 EACH PO DAILY, TAB 02/22/17 MICHELA SHAY PA-C Apr 06, 2017 14:50
--- NOTE | 2017-04-06 16:05 | RADRPT ---
PROCEDURE: XR right knee. CLINICAL INDICATION: Knee pain. TECHNIQUE: AP weightbearing, lateral weightbearing and sunrise views are available for review. COMPARISON: 02/22/2017 FINDINGS: There is a constrained total knee replacement. There is no evidence of loosening of the prosthesis. There is no evidence of hardware failure. The osseous structures are normal in mineralization, archi tecture and alignment No acute fracture or dislocation is seen.No osseous lesions are identified. T he soft tissues are unremarkable . IMPRESSION: Unremarkable constrained total knee replacement. RPTAT: HGDB .Cr Shabazz MD, MD Date Time Electronically viewed and signed by .Cr Shabazz MD, on 04/06/2017 16:05 .B/
== END | disposition home or self-care (01) ==
LOC: HKI 13:34
DX: M25.561 Pain in right knee (principal); Z47.1 Aftercare following joint replacement surgery; Z96.651 Presence of right artificial knee joint

== ENCOUNTER → 2017-08-25 | Outpatient (CLI) | payer MEDICARE, BC ==
--- NOTE | 2017-08-25 13:52 | RADRPT ---
PROCEDURE: XR Knees. CLINICAL INDICATION: Bilateral knee pain. TECHNIQUE: Total of six views. Frontal, oblique, and lateral views of both knees. COMPARISON: Right knee radiographs dated 04/06/2017. FINDINGS: There are bilateral total knee constrained arthroplasties which appears satisfactory. There is no fr acture, dislocation, or loosening. The soft tissues are normal. There is no joint effusion. There is no lytic or blastic lesion. IMPRESSION: 1. Satisfactory postoperative appearance of both knees. RPTAT: QQ .Robert Tellez MD, MD Date Time Electronically viewed and signed by .Robert Tellez MD, on 08/25/2017 13:52 .R/
--- NOTE | 2017-08-26 03:19 | HKNOTE ---
DATE OF SERVICE: 08/25/2017 The patient is now 6 months following her right total knee replacement. She is very pleased with th e result of her knee replacement surgery, but she continues to complain of neurological symptoms. A fter her surgery in the hospital, she had numbness of her entire right foot. This has subsequently receded so that the numbness is now left in the right great toe and along the lateral border of the right foot posterior half and ending at the heel. She also has numbness of the lateral aspect of th e right knee extending from the superior border of the patella to about the mid calf level. She saw a neurologist, Dr. Ndiaye, who felt that the problem possibly was as a result of an epidur al hematoma. recommended that she continue with Neurontin, but she has discontinued the Neuront in because she did not think it was doing anything for her (see Dr. Ndiaye's clinic consultation r eport). PHYSICAL EXAMINATION: Both of her knees have full range of motion without pain. IMAGING: X-rays of the knees obtained today at the [facility] were reviewed. These lois w all components to be well placed and well attached to the bone. FOOTNOTE: It is of interest that the anesthesiologist was Dr. Rosenberg, who administered an epidural anesthetic. I will discuss this with him the next time I see him. The patient will be seen again i n another 6 months' time for reevaluation. Dictated By: RAFA VERGARA/SCOTT Conf#: [id number] DID#: [id number]
== END | disposition home or self-care (01) ==
LOC: HKI 10:38
DX: Z09 Encounter for follow-up examination after completed treatment for conditions other than malignant neoplasm (principal); Z96.651 Presence of right artificial knee joint; R20.0 Anesthesia of skin
CPT/HCPCS: 73562; G0463

== ENCOUNTER → 2018-02-20 | Outpatient (CLI) | END | disposition home or self-care (01) ==

== ENCOUNTER → 2019-03-22 | Outpatient (CLI) | payer MEDICARE, BC ==
[~2019-03-22] MED LIST changes: +METF500T24 PO; -METF500T4 PO
--- NOTE | 2019-03-22 17:02 | CONS ---
Assessment/Plan Assessment/Plan Hospital Course (Demo Recall) 78-year-old female 2 years status post bilateral total knee arthroplasty by Dr. Brooke. That standpoint she is doing very well. There is no change in x- rays today in regards to the left tibial stem. It is stable. There are no signs of complication. She has likely sustained an acute gastrocnemius soleus strain and/or intramuscular tear. She has full motor function and full strength. At this time recommending to limit forceful plantarflexion for at least 2 weeks and to use ice and warm compresses. If she has increased pain and/or swelling she should return to clinic. Otherwise I would like to see her for annual follow-up with new x-rays. Consultation Date/Type/Reason Admit Date/Time Date of Consultation: March 22, 2019 Reason for Consultation Annual follow-up bilateral total knee arthroplasty Date/Time of Note DATE: 03/22/19 TIME: 16:51 Hx of Present Illness This is a 78-year-old female 2 years status post bilateral total knee arthroplasties by Dr. Brooke. She had the left total knee done in October 2016 and the right total knee done in January 2017. She has no complaints or concerns about the knee. Denies any fevers or chills. Denies any swelling the knee. Denies any pain. She is very pleased with the results. She is here for annual follow-up and surveillance. However 1 week ago she did have significant calf pain, swelling and ecchymosis on her left. This was during a workout class. She felt her muscle pull. She is able to bear weight with no pain. However forced plantarflexion and passive stretch of her ankle does cause some calf pain. Does not appear to be getting any worse. She is not on any blood thinners at this time. She has chronic numbness and tingling to the plantar aspect of her right foot. This is unchanged for 2 years. Patient denies fever, chills, shortness of breath, chest pain, nausea/vomiting, constipation, diarrhea, numbness, and tingling. Past Medical History Hypertension Home Meds Reported Medications Metformin Hcl* (Metformin Hcl*) 500 Mg Tablet, 500 MG PO WITH BREAKFAST, #30 TAB 02/22/17 Pravastatin Sodium* (Pravastatin Sodium*) 40 Mg Tablet, 40 MG PO HS, TAB 02/22/17 Lisinopril/Hydrochlorothiazide (Lisinopril-Hctz 20-12.5 mg Tab) 1 Each Tablet, 1 EACH PO DAILY, TAB 02/22/17 Allergies: Coded Allergies: No Known Allergies (Verified Allergy, Unknown, 02/22/17) Past Surgical History Staged bilateral knee arthroplasties [place] [address] Edwardo johnson Family History Significant Family History: no pertinent family hx Social History Alcohol Use: occasionally Smoking Status: Former smoker Drug Use: none Exam/Review of Systems Exam Vitals Weight: 130 pounds Height: 5 foot Temperature: 90.4 Heart Rate: 85 Blood Pressure: 150/74 Respiratory Rate: 14 Exam General: Alert, oriented x3. No Acute Distress. Heart: Regular rate and rhythm. Lungs: No respiratory distress. No accessory muscle use. Bilateral lower Extremity: Incision well-healed. No skin breakdown, no surrounding erythema. There is significant ecchymosis over the left calf. There is mild swelling. TTP over the calf. Active plantarflexion and dorsiflexion of the ankle are intact with full strength. There is pain though with forceful plantarflexion. Sensation is decreased to the plantar aspect of the right foot otherwise sensation intact to light touch in a sural, saphenous, deep peroneal, superficial peroneal, medial and lateral plantar nerve distribution. Motor is intact, patient able to dorsiflex and plantarflex ankle and extend and flex great toe. Dorsalis Pedis pulse +2, Brisk capillary refill. Compartments are soft. ROM: Extension: 0 Flexion: 130 Varus/ Valgus Stability: Stable in extension, flexion, and throughout range of motion A/P Stability: Stable Gait: Fast pace. None antalgic. No gait aid. Imaging Imaging Xrays obtained in clinic today and personally reviewed by myself: Bilateral AP and merchant views and a dedicated lateral of the bilateral knee demonstrates bilateral knee s/p TKA. Right Knee: Components in good position and alignment. No signs of wear, osteolysis, loosening, component failure, or fracture. No acute complications. Left Knee: Tibial component with stem is cemented in varus, however this is not a full- length film and mechanical alignment cannot be fully established. The tip of the stem has perforated the cortex with extruded cement. Comparing this x-ray to multiple x-rays since the day of surgery this is stable. There are no signs of loosening or any movement of the stem. No signs of wear, osteolysis, loosening, component failure, or fracture. No acute complications. KASSY PORTER MD March 22, 2019 17:02
--- NOTE | 2019-03-23 18:29 | RADRPT ---
PROCEDURE: XR right knee and XR left knee. CLINICAL INDICATION: Bilateral knee pain TECHNIQUE: 4 images of the left knee and 4 images of the right knee are available for review. COMPARISON: KNEE 02/20/2018; [facility] KNEE 12/15/2016; J[facility] KNEE 11/04/2016 FINDINGS: Right knee: There is a constrained right knee total arthroplasty in anatomic alignment. There is osteopenia without evidence of acute fracture. The soft tissues appear grossly unremarkable. Left knee: There is a constrained left knee total arthroplasty in anatomic alignment. There is some cement is extruded beyond the lateral tibial cortex near the tip of the tibial stem. There is background osteopenia without acute fracture. There is mild soft tissue swelling para IMPRESSION: 1. Bilateral constrained total knee arthroplasties as above noted extruded cement along the lateral m argin of the tip of the left tibial stem, as seen on multiple previous studies. 2. Background osteopenia without radiographic evidence of acute fracture. RPTAT: UU .Montrell Kim MD, MD Date Time Electronically viewed and signed by .Montrell Kim MD, on 03/23/2019 18:28 .K/
== END | disposition home or self-care (01) ==
LOC: HKI 13:46
PROVIDERS: ATTEND Orthopaedic Surgery Adult Reconstructive Orthopaedic Surgery
DX: Z47.1 Aftercare following joint replacement surgery (principal); I10 Essential (primary) hypertension; Z87.891 Personal history of nicotine dependence; Z96.653 Presence of artificial knee joint, bilateral
CPT/HCPCS: 73564; G0463